=== PATIENT | female | born 1930 | race Caucasian/White ===

== ENCOUNTER 2017-08-01 12:24 | Inpatient (IN) | payer MEDICARE, OTHER ==
[~2017-08-01] VITALS: Ht 177.8 cm; Wt 66.9 kg
[~2017-08-01 12:24] MED LIST: ACETAMINOPHEN1 EAC2 PO; AMLODIPINE BESY10 MG PO; ASPIRIN CHEW81 MG PO; FERROUS SULFAT325 MG PO; LEVAQUIN500 MG PO; LEVOTHYROXINE88 MCG PO; LIPITOR20 MG PO; LISINOPRIL10 MG PO; LOVENOX40 MG/0.4 SC; METOCLOPRAMIDE10 MG PO; METOPROLOL TART50 MG PO; Magnesium/Alum/Simethicone PO; NITROFURANTOIN100 M1 PO; NORVASC10 MG PO; PLAVIX75 MG PO; PROTONIX40 MG/ML PO; TYLENOL EXTRA500 MG PO; TYLENOL325 MG PO; ULTRAM 50MG50 MG PO; VENELEX OINTMEN60 GM TP; VENLAFAXINE HCL75 M1 PO; XARELTO10 MG PO; XOPENEX0.63 MG/3 INH
[2017-08-01] MEDS ORDERED: ACETAMINOPHEN 325 MG TAB PO STA (13:43)
[2017-08-01] MEDS ORDERED: SODIUM CHLORIDE 0.9% 250ML 250 ML IV ONE (13:45)
[2017-08-01] MEDS ORDERED: FUROSEMIDE INJ 10 MG/ML 2 ML VIAL IV PRN (13:45)
[2017-08-01 13:50] LABS: BASOPHILS # (AUTO) 0.1 (0.0-0.1); BASOPHILS % 0.3 % (0.0-1.0); HEMOGLOBIN 10.9 g/dL (12.0-16.0); LYMPHOCYTES # (AUTO) 2.1 (1.0-3.2); LYMPHOCYTES % 10.8 % (18.0-39.1); MEAN CORPUSCULAR HEMOGLOBIN 28.8 pg (28-32); MEAN CORPUSCULAR HGB CONC 32.1 g/dL (31-35); MEAN CORPUSCULAR VOLUME 89.7 fL (81-99); MONOCYTES # (AUTO) 0.8 (0.2-0.8); MONOCYTES % 4.2 % (4.4-11.3); NEUTROPHILS # (AUTO) 16.5 (2.1-6.9); NEUTROPHILS % 84.4 % (38.7-80.0); PLATELET COUNT 245 x10e3/uL (140-360); RED BLOOD COUNT 3.79 x10e6/uL (3.6-5.1)
--- NOTE | 2017-08-01 14:00 | Diagnostic Imaging Report ---
PROCEDURE: A single AP view of the chest. COMPARISON: Patients [facility], DX, CHEST SINGLE (PORTABLE), 11/19/2016, 13:03. INDICATIONS: COUGH, CONGESTION FINDINGS: Lines/tubes: None. Lungs: The lungs are well-inflated. Patchy opacity in the left retrocardiac, likely reflects atelectasis. The rest of the lungs is grossly clear. Pleura: There is no pleural effusion or pneumothorax. Heart and mediastinum: Cardiac silhouette is unremarkable. Pulmonary vasculature is normal. Tortuous aorta with atherosclerotic calcification. Bones: No acute bony abnormality. IMPRESSION: 1. left retrocardiac atelectasis. No consolidation or effusion. Armond Fisher M.D. Dictated by: Armond Fisher M.D. on 08/01/2017 at 14:08 Electronically approved by: Armond Fisher M.D. on 08/01/2017 at 14:08
[2017-08-01 14:01] LABS: INR 1.02; PROTHROMBIN TIME 13.9 seconds (11.9-14.5)
[2017-08-01 14:02] LABS: PARTIAL THROMBOPLASTIN TIME 37.1 seconds (23.8-35.5)
[2017-08-01 14:08] LABS: ALBUMIN 2.5 g/dL (3.5-5.0); ALBUMIN/GLOBULIN RATIO 0.5 (0.8-2.0); CALCIUM 8.3 mg/dL (8.4-10.2); CREATININE, SERUM 2.18 mg/dL (0.57-1.11)
[2017-08-01 14:22] LABS: CREATINE KINASE MB 2.1 ng/mL (0.00-5.00); TROPONIN I 0.03 ng/mL (0-0.300)
[2017-08-01] MEDS ORDERED: ALBUTEROL/IPRATROPIUM 3 ML NEB NEB ONE (14:45)
[2017-08-01] MEDS ORDERED: CEFTRIAXONE SOD 1 GM VIAL IV ONE (14:45)
[2017-08-01] MEDS ORDERED: AZITHROMYCIN 500MG/NS 250 ML 250 ML IV ONE ×2 (14:45→19:00)
[2017-08-01] MEDS: SODIUM CHLORIDE 0.9% 1000ML 1,000 ML IV SCH ×3 (15:30→18:45)
[2017-08-01 16:00] LABS: BILIRUBIN,URINE NEGATIVE (NEGATIVE); CLARITY,URINE HAZY (CLEAR); COLOR,URINE STRAW (YELLOW); KETONES,URINE NEGATIVE (NEGATIVE); LEUKOCYTE ESTERASE ,URINE 2+ (NEGATIVE); NITRITE,URINE NEGATIVE (NEGATIVE); URINE UROBILINOGEN 0.2 mg/dL (0.2 - 1)
[2017-08-01 16:01] LABS: PROTEIN,URINE DIPSTICK 1+ (NEGATIVE)
[2017-08-01 16:07] LABS: MAGNESIUM 1.7 MG/DL (1.3-2.1); PHOSPHORUS 4.3 MG/DL (2.3-4.7)
[2017-08-01 16:15] LABS: RBC,URINE >50 /HPF (0-5)
[2017-08-01] MEDS ORDERED: ONDANSETRON HCL INJ 2 MG/ML VIAL IV PRN (16:15)
[2017-08-01 16:16] LABS: BACTERIA,URINE FEW /HPF; EPITHELIAL CELLS,URINE RARE /LPF
[2017-08-01 16:37] LABS: THYROID STIMULATING HORMONE 0.545 uIU/mL (0.350-4.940)
[2017-08-01] MEDS ORDERED: ACETAMINOPHEN 1000 MG/100 ML IV STA (16:40)
[2017-08-01 18:30] VITALS: BP 93/52
[2017-08-01 19:30] VITALS: BP 115/60
[2017-08-01] MEDS: PIPERACILLIN/TAZO 2.25 GM 50 ML IV SCH (19:30)
[2017-08-01 19:37] LABS: CREATININE,URINE RANDOM 87.86 mg/dL (47-110)
[2017-08-01 19:38] VITALS: BP 93/52
--- NOTE | 2017-08-01 20:25 | Consultation ---
DATE OF CONSULTATION: August 01, 2017 NEPHROLOGY CONSULTATION REASON FOR CONSULTATION: Acute kidney injury. REASON FOR ADMISSION: Cough and fever. HISTORY OF PRESENTING ILLNESS: Ms. 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 She states she has been trying to eat and drink properly, denies any nausea, vomiting, diarrhea. However, she had a soft stool the moment she came into the hospital and then she also was complaining of some generalized pain in her abdomen. At this time, she is having a fever of 101, and on admission she was noted to have an acute kidney injury and her creatinine was noted to be elevated at 2.1 with a BUN of 65. From prior chart review in 2014 to 2015, her creatinine has been between 1.1 to 1.4; so, likely this is [id number] kidney injury. Patient has a Alicia chronically in the alf, which was replaced when she came to the emergency room. At this time, she has very little urine in the urine bag. She has been started on normal saline at 125 to 150 mL per hour. She has been given azithromycin and ceftriaxone and now is on Zosyn as well. She had a chest x-ray done which shows a retrocardiac atelectasis but no pneumonia. Her UA is dirty. However, she has a Alicia. Her UA is positive for 1+ protein, 4+ blood with 2+ leukocyte esterase, more than 50 RBCs and 6-10 WBCs, few bacteria. White count of 19.5, hemoglobin of 10.9 and platelet count of 245. Sodium of 136, potassium 4, chloride 109, bicarb 15, anion gap 16, BUN 65, creatinine 2.18, lactic acid 23.6, calcium 8.3. AST 42, albumin 2.5. TSH 0.5. CK of 127. Phosphorus 4.3 and magnesium 1.7. We have been consulted to assist with management of her acute kidney injury. Patient denies any prior history of JOVANA. However, she is a very poor historian. Most of the history was from chart review. PAST MEDICAL HISTORY 1. Hypertension. 2. CAD status post PCI. 3. 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 4. CVA with left-sided weakness, bilateral footdrop. PAST SURGICAL HISTORY 1. PCI. 2. Hip ORIF. 3. Hysterectomy. SOCIAL HISTORY: Nonsmoker, nonalcoholic, no drug abuse. Lives in alf. FAMILY HISTORY: Not pertinent to chief complaint. ALLERGIES: NO KNOWN ALLERGIES. MEDICATIONS: Reviewed in electronic medical record. REVIEW OF SYSTEMS: Positive for abdominal pain, cough, fever, chills, shortness of breath. Otherwise negative. PHYSICAL EXAMINATION VITAL SIGNS: Temperature 101.2, T-max 102.7, pulse rate 93 per minute, respiratory rate 16 per minute, blood pressure 93/52, pulse ox 96%. GENERAL: Resting in bed, comfortable with nasal cannula on. HEENT: Dry mucous membranes. Normocephalic, atraumatic. RESPIRATORY: Clear breath sounds. Has some coarseness in her left mid lobe but otherwise within normal. CARDIOVASCULAR: Tachycardic. GASTROINTESTINAL: Abdomen diffusely tender, soft. GENITOURINARY: Alicia present with minimal urine in the bag. MUSCULOSKELETAL: Has very dry scaly skin. No edema. Bilateral footdrop. NEUROLOGICAL: Has weakness in her left lower extremity. Oriented x3. LABORATORY STUDIES: WBC count 19.5, hemoglobin 10.9, platelet count 245. INR 1. Chemistries with sodium 136, potassium 4, chloride 109, bicarb 15, anion gap 16, BUN 65, creatinine 2.18, lactic 23.6, calcium 8.3. AST 42, albumin 2.5. TSH 0.5. CK 127, troponin 0.03. Phosphorus 4.3, magnesium 1.7. Urine with pH of 5, protein 1+, blood 4+, leukocyte esterase 2+, more than 50 RBCs, 6-10 WBCs. Blood cultures and urine cultures pending. Chest x-ray with possible left retrocardiac atelectasis but no consolidation. IMPRESSION AND PLAN 1. Acute kidney injury, likely prerenal from volume depletion. Agree with fluids at this time, and we will send urine lytes as well. 2. Sepsis. Likely source appears to be urinary tract infection versus has some tenderness in GI tract. So, I will start Zosyn. Discussed with Dr. Mclean. Will start Zosyn at 2.25 q.8 per renal dosing. Is currently also on azithromycin given her fever, cough. 3. Leukocytosis, likely secondary to volume depletion and sepsis. Continue with fluids. 4. Anion gap metabolic acidosis, likely secondary to volume depletion. Continue with fluids. May have to switch to half NS in the a.m. For now, continue with same. 5. Lactic acidosis, likely secondary to sepsis. Antibiotics and fluids. 6. Cerebrovascular accident. Likely will need PT/OT in the future. Finally, thank you very much, Dr. Mclean, for this consult. I will be very happy to follow this patient with you. Job#: [id number] EV
[2017-08-01 20:48] VITALS: BP 115/60
[2017-08-01] MEDS: ATORVASTATIN 20 MG TAB PO SCH (21:00)
--- NOTE | 2017-08-01 21:12 | History and Physical ---
HISTORY OF PRESENT ILLNESS: Patient is unable to give me much of the history because of history of stroke and dementia. Source of history is the [facility] chart. Patient was transferred from the [facility] with dehydration and fever. She lives at [facility]. She has a history of dementia and according to the notes has history of coronary artery disease, stroke, left-sided hemiparesis, history of left femur open reduction and internal fixation. She is a . She used to live at home with her daughter and her . She has no smoking history. In the emergency room, patient was given IV Rocephin and azithromycin and IV hydration and was admitted for further care. PAST MEDICAL HISTORY: Patient has a history of hypertension, coronary artery disease, history of CVA resulting in left hemiparesis with residual weakness. She has history of a femur fracture. MEDICATION LIST FROM THE LONG TERM: She is on Tylenol, aspirin, DuoNebs, levothyroxine, Lipitor, lisinopril, metoprolol, Norvasc, Plavix and Tessalon Perles. ALLERGIES: SHE HAS NO KNOWN DRUG ALLERGIES PER THE LONG TERM CHART. SOCIAL HISTORY: She was living with her daughter and . She has no history of smoking. PHYSICAL EXAMINATION VITAL SIGNS: Temperature 101.2, pulse of 93, blood pressure 93/52, T-max of 102.7. SKIN: Warm and dry. GENERAL APPEARANCE: She is somnolent but arousable, does not follow much commands. HEENT: Head atraumatic, normocephalic. NECK: Supple. No JVD. CHEST: Crackles bilaterally. HEART: S1/S2 audible. ABDOMEN: Soft, nontender, nondistended. EXTREMITIES: Bilateral pedal edema. NEUROLOGICALLY: She is minimally responsive. LABS: White count of 19,000, hemoglobin 10.9, platelets 245. Chemistry: Sodium 136, potassium 4.0, chloride 109, BUN 65, creatinine 2.18, was 1.1 in November of 2016 when she was discharged from here. INR is 1.02. Urinalysis is showing more than 6-10 WBCs, more than 50 RBCs. Blood cultures and urine cultures are pending. Chest x-ray is unchanged from previous, and I do not see any infiltrate. ASSESSMENT 1. Ms. Duong is an 87-year-old female [facility] resident who came in because of fever. UA is suggestive of urinary tract infection, and patient is in acute renal failure. She was tachycardic and had a temperature of 101.2 with blood pressure of 93/52, likely had septic shock with high lactic acid due to UTI. 2. Urinary tract infection. 3. History of hypertension. 4. History of stroke. 5. History of coronary artery disease. 6. Hypothyroidism. 7. Acute kidney injury. PLAN 1. I will start the patient on IV Zosyn and azithromycin, discontinue the Rocephin. 2. Will follow the blood cultures and urine cultures. 3. Resume the home medication. 4. Nephrology consult for acute kidney injury. Start the patient on IV hydration. 5. Previous urine culture grew Morganella morganii which was sensitive to Zosyn. Job#: [id number] EV
--- NOTE | 2017-08-01 21:54 | Consultation ---
DATE OF CONSULTATION: DICTATION DISCONTINUED (00:08) Job#: [id number] CQ
[2017-08-01] MEDS ORDERED: PIPERACILLIN/TAZO 2.25 GM 50 ML IV SCH (22:00)
[2017-08-02] VITALS (8 sets, daily range): BP systolic 88–126; BP diastolic 49–61
[2017-08-02] MEDS: PIPERACILLIN/TAZO 2.25 GM 50 ML IV SCH ×3 (03:30→21:26)
[2017-08-02] MEDS: ACETAMINOPHEN 325 MG TAB PO PRN (04:40)
--- NOTE | 2017-08-02 05:42 | Diagnostic Imaging Report ---
EXAM: CHEST SINGLE (PORTABLE), AP 1 view DATE: 08/02/2017 7:00 AM Time stamp on exam: 0512 hours INDICATION: Bronchitis COMPARISON: AP view of the chest were 2017 FINDINGS: LINES/TUBES: None LUNGS: Stable bibasilar atelectasis PLEURA: No effusions or pneumothorax. HEART AND MEDIASTINUM: Stable appearance BONES AND SOFT TISSUES: No acute findings. IMPRESSION: Stable bibasilar atelectasis, left greater than right. Signed by: Dr. Shannan Peters M.D. on 08/02/2017 5:38 AM
[2017-08-02] MEDS: LEVOTHYROXINE SODIUM 75 MCG TAB PO SCH (05:51)
[2017-08-02] MEDS: SODIUM CHLORIDE 0.9% 1000ML 1,000 ML IV SCH (05:51)
[2017-08-02 08:27] LABS: BASOPHILS % 0.1 % (0.0-1.0); EOSINOPHILS # (AUTO) 0.1 (0.0-0.4); EOSINOPHILS % 0.4 % (0.0-6.0); HEMATOCRIT 30.1 % (34.2-44.1); HEMOGLOBIN 9.7 g/dL (12.0-16.0); LYMPHOCYTES # (AUTO) 1.7 (1.0-3.2); LYMPHOCYTES % 12.4 % (18.0-39.1); MEAN CORPUSCULAR HEMOGLOBIN 28.6 pg (28-32); MEAN CORPUSCULAR HGB CONC 32.2 g/dL (31-35); MEAN CORPUSCULAR VOLUME 88.8 fL (81-99); MONOCYTES # (AUTO) 0.6 (0.2-0.8); MONOCYTES % 4.5 % (4.4-11.3); NEUTROPHILS % 81.8 % (38.7-80.0); PLATELET COUNT 202 x10e3/uL (140-360); RED BLOOD COUNT 3.39 x10e6/uL (3.6-5.1); RED CELL DISTRIBUTION WIDTH 15.1 % (11.7-14.4)
[2017-08-02] MEDS: CLOPIDOGREL BISULFATE 75 MG TAB PO SCH (08:34)
[2017-08-02] MEDS: ASPIRIN 81 MG CHEW TAB PO SCH (08:34)
[2017-08-02 09:05] LABS: ALANINE AMINOTRANSFERASE 14 IU/L (0-55); ALBUMIN 1.9 g/dL (3.5-5.0); ALBUMIN/GLOBULIN RATIO 0.5 (0.8-2.0); ALKALINE PHOSPHATASE 81 IU/L (40-150); ANION GAP 12.5 mmol/L (8-16); BLOOD UREA NITROGEN 57 mg/dL (7-26); BUN/CREATININE RATIO 36 (6-25); CALCIUM 7.9 mg/dL (8.4-10.2); CARBON DIOXIDE 13 mmol/L (22-29); CHLORIDE 118 mmol/L (98-107); CREATINE KINASE 116 IU/L (29-168); CREATININE, SERUM 1.58 mg/dL (0.57-1.11); EST GLOMERULAR FILTRATION RATE 31 ML/MIN (60-); GLUCOSE 80 mg/dL (74-118); MAGNESIUM 1.5 MG/DL (1.3-2.1); PHOSPHORUS 3.7 MG/DL (2.3-4.7); POTASSIUM 3.5 mmol/L (3.5-5.1); SODIUM 140 mmol/L (136-145)
[2017-08-02] MEDS ORDERED: LEVOFLOXACIN 500MG/D5W 100ML 100 ML IV ONE (10:00)
[2017-08-02] MEDS ORDERED: VANCOMYCIN 1GM/NS 250 ML 250 ML IV ONE (11:00)
[2017-08-02] MEDS: SODIUM BICARBONATE 8.4% 75 ML in SODIUM CHLORIDE 0.45% 1,000 ML IV SCH (11:29)
[2017-08-02] MEDS ORDERED: PIPER-TAZ 3.375 GM 50 ML IV SCH (14:00)
[2017-08-02] MEDS ORDERED: VANCOMYCIN 1GM/NS 250 ML 250 ML IV SCH (14:00)
--- NOTE | 2017-08-02 14:06 | Consultation ---
DATE OF CONSULTATION: August 02, 2017 INFECTIOUS DISEASE CONSULTATION I would like to thank Dr. Mclean for this interesting consult. HISTORY OF PRESENTING ILLNESS: This is a very pleasant 87-year-old female with past medical history of stroke and dementia, who is a [place] [facility] resident. Patient also has history of hypertension, coronary artery disease, left hemiparesis and residual weakness, and history of femur fracture. The patient was transferred from [facility] with dehydration and ongoing fevers. Patient is unable to provide a lot of history, but she thinks that she is feeling better. She is complaining of pain all over the body. Other than that, she has been admitted at [facility] and has been diagnosed with a urinary tract infection and sepsis and our service has been asked to evaluate and give further recommendations. PAST MEDICAL HISTORY: Hypertension, coronary artery disease, CVA, and femur fracture. MEDICATIONS: Reviewed. ALLERGIES: NO KNOWN DRUG ALLERGIES. FAMILY HISTORY: Noncontributory. SOCIAL HISTORY: Patient lives in a [place] [facility] [place]. REVIEW OF SYSTEMS: Unable to obtain as the patient is confused. PHYSICAL EXAMINATION VITAL SIGNS: Temperature is 101, respiratory rate is 18, heart rate is 90, blood pressure is 100/60. SKIN: Warm and dry. HEENT: Atraumatic, normocephalic. CHEST: Clear to auscultation bilaterally. HEART: S1, S2 normal. ABDOMEN: Soft and nontender. EXTREMITIES: Has chronic vascular changes. LABORATORY DATA: WBC count of 13, hemoglobin is 10, and platelet count 245. Sodium 136, potassium is 4.0, and creatinine is 2.18. Urinalysis shows 6-10 wbc's. ASSESSMENT AND PLAN: This is a female with past medical history of coronary artery disease, hypertension, CVA, left hemiparesis, residual weakness, and femur fracture, a [place] [facility] resident, stroke and dementia, presents with fever due to sepsis secondary to urinary tract infection and bacteremia. Blood cultures show gram-positive cocci and urine culture shows gram-negative delfino. I will continue the patient on IV Zosyn 2.25 q.8 hours and she has been given a dose of IV vancomycin and will check the levels in the morning and will re-dose it accordingly. We will also check echocardiogram and also check renal ultrasound for the concerns of pyelonephritis. I would like to thank Dr. Mclean for this interesting consult. Thank you for letting me participate in the care of your patient. Job#: [id number] REED
[2017-08-02] MEDS ORDERED: SODIUM CHLORIDE 0.9% 1000ML 1,000 ML IV SCH (14:30)
[2017-08-02] MEDS ORDERED: CEFTRIAXONE SOD 1 GM VIAL IV SCH (14:45)
[2017-08-02] MEDS ORDERED: ENOXAPARIN SOD INJ 40 MG/0.4 ML SYR SC SCH ×2 (17:00)
[2017-08-02 17:22] LABS: ANION GAP 12.5 mmol/L (8-16); CREATININE, SERUM 1.43 mg/dL (0.57-1.11); POTASSIUM 3.5 mmol/L (3.5-5.1)
[2017-08-02] MEDS ORDERED: AZITHROMYCIN 500MG/NS 250 ML 250 ML IV SCH (20:00)
[2017-08-02] MEDS: ATORVASTATIN 20 MG TAB PO SCH (21:26)
[2017-08-03] VITALS (8 sets, daily range): BP systolic 113–143; BP diastolic 59–68
[2017-08-03] MEDS ORDERED: SODIUM BICARBONATE 8.4% SYRING 100 ML ONE (01:47)
[2017-08-03] MEDS ORDERED: SODIUM CHLORIDE 0.45% 1,000 ML ONE (01:48)
[2017-08-03] MEDS: SODIUM BICARBONATE 8.4% 75 ML in SODIUM CHLORIDE 0.45% 1,000 ML IV SCH ×3 (02:07→11:52)
[2017-08-03] MEDS: LEVOTHYROXINE SODIUM 75 MCG TAB PO SCH (05:35)
[2017-08-03] MEDS: PIPERACILLIN/TAZO 2.25 GM 50 ML IV SCH (05:35)
[2017-08-03 08:35] LABS: BASOPHILS % 0.1 % (0.0-1.0); EOSINOPHILS # (AUTO) 0.1 (0.0-0.4); EOSINOPHILS % 0.9 % (0.0-6.0); HEMATOCRIT 28.3 % (34.2-44.1); HEMOGLOBIN 9.4 g/dL (12.0-16.0); LYMPHOCYTES # (AUTO) 1.6 (1.0-3.2); LYMPHOCYTES % 16.3 % (18.0-39.1); MEAN CORPUSCULAR HEMOGLOBIN 28.7 pg (28-32); MEAN CORPUSCULAR HGB CONC 33.2 g/dL (31-35); MEAN CORPUSCULAR VOLUME 86.3 fL (81-99); MONOCYTES # (AUTO) 0.8 (0.2-0.8); MONOCYTES % 7.9 % (4.4-11.3); NEUTROPHILS # (AUTO) 7.1 (2.1-6.9); NEUTROPHILS % 74.2 % (38.7-80.0); PLATELET COUNT 230 x10e3/uL (140-360); RED BLOOD COUNT 3.28 x10e6/uL (3.6-5.1)
[2017-08-03] MEDS: CLOPIDOGREL BISULFATE 75 MG TAB PO SCH (08:46)
[2017-08-03] MEDS: ASPIRIN 81 MG CHEW TAB PO SCH (08:46)
[2017-08-03] MEDS ORDERED: VANCOMYCIN 1GM/NS 250 ML 250 ML IV SCH (11:00)
[2017-08-03 11:15] LABS: ANION GAP 13.3 mmol/L (8-16); CALCIUM 7.8 mg/dL (8.4-10.2); CREATININE, SERUM 1.1 mg/dL (0.57-1.11); MAGNESIUM 1.2 MG/DL (1.3-2.1); PHOSPHORUS 2.4 MG/DL (2.3-4.7); POTASSIUM 3.3 mmol/L (3.5-5.1); VANCOMYCIN,RANDOM 12.1 ug/mL
--- NOTE | 2017-08-03 11:42 | Diagnostic Imaging Report ---
EXAM: RENAL ULTRASOUND Date: 08/03/2017 7:00 AM Indication: Comparison: None Technique: Sonographic evaluation of the kidneys. Color doppler was utilized to supplement evaluation. FINDINGS: KIDNEYS: Right: Measures 6.9 cm in length. No hydronephrosis or solid mass lesion identified. Renal cortex measures 0.6 cm. Simple appearing cyst superior right kidney 1.2 cm. Left: Measures 8.2 cm in length. No hydronephrosis or solid mass lesion identified. Renal cortex measures 0.6 cm. URINARY BLADDER: Unremarkable. OTHER: None. IMPRESSION: No hydronephrosis. Diminutive kidneys with thinned renal cortices, nonspecific, but often seen in the setting of chronic medical renal disease. Signed by: Dr. Judah Phillips MD on 08/03/2017 11:38 AM
[2017-08-03] MEDS: MAGNESIUM SULFATE 2GM/50ML 50 ML IV SCH ×2 (12:23→14:42)
[2017-08-03] MEDS ORDERED: POTASSIUM CHLORIDE 10MEQ/100ML 200 ML INJ ONE ×2 (13:00→17:30)
[2017-08-03] MEDS: MEROPENEM 500MG 500 MG in WATER STERILE 10ML VIAL 10 ML IV SCH ×2 (13:46→21:04)
[2017-08-03] MEDS: ENOXAPARIN 30 MG/0.3 ML SYR SC SCH (16:53)
[2017-08-03] MEDS ORDERED: POTASSIUM CHLORIDE 10MEQ/100ML 100 ML INJ ONE ×2 (17:30→21:30)
[2017-08-03] MEDS ORDERED: MEROPENEM 500 MG VIAL ONE (20:52)
[2017-08-03] MEDS: ATORVASTATIN 20 MG TAB PO SCH (21:03)
[2017-08-04] VITALS (7 sets, daily range): BP systolic 122–147; BP diastolic 67–77
[2017-08-04] MEDS: MEROPENEM 500MG 500 MG in WATER STERILE 10ML VIAL 10 ML IV SCH ×2 (05:12→14:00)
[2017-08-04] MEDS: LEVOTHYROXINE SODIUM 75 MCG TAB PO SCH (05:13)
[2017-08-04] MEDS: SODIUM BICARBONATE 8.4% 75 ML in SODIUM CHLORIDE 0.45% 1,000 ML IV SCH ×3 (05:16→14:51)
[2017-08-04 07:26] LABS: BASOPHILS % 0.3 % (0.0-1.0); EOSINOPHILS # (AUTO) 0.2 (0.0-0.4); EOSINOPHILS % 2.2 % (0.0-6.0); HEMATOCRIT 27.7 % (34.2-44.1); HEMOGLOBIN 9.3 g/dL (12.0-16.0); LYMPHOCYTES # (AUTO) 1.6 (1.0-3.2); LYMPHOCYTES % 20.8 % (18.0-39.1); MEAN CORPUSCULAR HEMOGLOBIN 28.5 pg (28-32); MEAN CORPUSCULAR HGB CONC 33.6 g/dL (31-35); MONOCYTES # (AUTO) 0.6 (0.2-0.8); MONOCYTES % 7.3 % (4.4-11.3); NEUTROPHILS # (AUTO) 5.4 (2.1-6.9); NEUTROPHILS % 68.8 % (38.7-80.0); PLATELET COUNT 256 x10e3/uL (140-360); RED BLOOD COUNT 3.26 x10e6/uL (3.6-5.1); RED CELL DISTRIBUTION WIDTH 14.9 % (11.7-14.4)
[2017-08-04 07:45] LABS: ANION GAP 10.6 mmol/L (8-16); BLOOD UREA NITROGEN 27 mg/dL (7-26); BUN/CREATININE RATIO 35 (6-25); CALCIUM 7.6 mg/dL (8.4-10.2); CARBON DIOXIDE 20 mmol/L (22-29); CHLORIDE 112 mmol/L (98-107); CREATININE, SERUM 0.77 mg/dL (0.57-1.11); EST GLOMERULAR FILTRATION RATE > 60 ML/MIN (60-); GLUCOSE 86 mg/dL (74-118); MAGNESIUM 2.2 MG/DL (1.3-2.1); PHOSPHORUS 1.7 MG/DL (2.3-4.7); POTASSIUM 3.6 mmol/L (3.5-5.1); SODIUM 139 mmol/L (136-145)
[2017-08-04] MEDS: ASPIRIN 81 MG CHEW TAB PO SCH (09:00)
[2017-08-04] MEDS: CLOPIDOGREL BISULFATE 75 MG TAB PO SCH (09:00)
[2017-08-04] MEDS: ENOXAPARIN 30 MG/0.3 ML SYR SC SCH (17:00)
[2017-08-04] MEDS ORDERED: ALBUTEROL/IPRATROPIUM 3 ML NEB NEB SCH (19:00)
[2017-08-04] MEDS: ATORVASTATIN 20 MG TAB PO SCH (20:43)
[2017-08-04] MEDS: METOPROLOL TARTRATE 50 MG TAB PO SCH (21:00)
[2017-08-04] MEDS: MEROPENEM 500 MG VIAL IV SCH (22:00)
[2017-08-05] VITALS (9 sets, daily range): BP systolic 99–162; BP diastolic 57–89
[2017-08-05] MEDS: LEVOTHYROXINE SODIUM 75 MCG TAB PO SCH (05:15)
[2017-08-05] MEDS: MEROPENEM 500 MG VIAL IV SCH ×3 (05:15→22:06)
[2017-08-05] MEDS: IPRATROPIUM BROMIDE 0.02% 2.5 ML NEB NEB SCH ×2 (07:00→20:30)
[2017-08-05 07:25] LABS: BASOPHILS % 0.3 % (0.0-1.0); EOSINOPHILS # (AUTO) 0.1 (0.0-0.4); EOSINOPHILS % 1.6 % (0.0-6.0); HEMATOCRIT 26.4 % (34.2-44.1); HEMOGLOBIN 8.7 g/dL (12.0-16.0); LYMPHOCYTES # (AUTO) 1.7 (1.0-3.2); LYMPHOCYTES % 22.7 % (18.0-39.1); MEAN CORPUSCULAR VOLUME 84.9 fL (81-99); MONOCYTES # (AUTO) 0.5 (0.2-0.8); MONOCYTES % 7.2 % (4.4-11.3); NEUTROPHILS # (AUTO) 5.1 (2.1-6.9); NEUTROPHILS % 67.7 % (38.7-80.0); PLATELET COUNT 279 x10e3/uL (140-360); RED BLOOD COUNT 3.11 x10e6/uL (3.6-5.1)
[2017-08-05 07:29] LABS: ANION GAP 9.2 mmol/L (8-16); BLOOD UREA NITROGEN 20 mg/dL (7-26); BUN/CREATININE RATIO 28 (6-25); CALCIUM 7.3 mg/dL (8.4-10.2); CARBON DIOXIDE 25 mmol/L (22-29); CHLORIDE 107 mmol/L (98-107); CREATININE, SERUM 0.72 mg/dL (0.57-1.11); EST GLOMERULAR FILTRATION RATE > 60 ML/MIN (60-); GLUCOSE 88 mg/dL (74-118); MAGNESIUM 1.6 MG/DL (1.3-2.1); PHOSPHORUS 1.9 MG/DL (2.3-4.7); POTASSIUM 3.2 mmol/L (3.5-5.1); SODIUM 138 mmol/L (136-145); VANCOMYCIN,RANDOM 10.8 ug/mL
[2017-08-05] MEDS: CLOPIDOGREL BISULFATE 75 MG TAB PO SCH (08:30)
[2017-08-05] MEDS: ASPIRIN 81 MG CHEW TAB PO SCH (08:30)
[2017-08-05] MEDS ORDERED: IPRATROPIUM BROMIDE 0.02% 2.5 ML NEB NEB SCH (09:00)
[2017-08-05] MEDS ORDERED: METOPROLOL TARTRATE 50 MG TAB PO SCH (09:00)
[2017-08-05] MEDS: METOPROLOL TARTRATE 50 MG TAB PO SCH ×2 (09:00→17:00)
[2017-08-05] MEDS: BALSAM PERU/CASTOR OIL 60 GM OINT...G. TP SCH (09:00)
[2017-08-05] MEDS: POTASSIUM PHOSPHATE 20 MM in SODIUM CHLORIDE 0.9% 250ML 250 ML IV SCH ×2 (12:00→16:00)
[2017-08-05] MEDS: DAPTOMYCIN 300 MG in SODIUM CHLORIDE 0.9% 100 ML IV SCH (15:30)
[2017-08-05] MEDS: ENOXAPARIN 30 MG/0.3 ML SYR SC SCH (17:00)
[2017-08-05] MEDS: ATORVASTATIN 20 MG TAB PO SCH (20:49)
[2017-08-05] MEDS ORDERED: POTASSIUM PHOSPHATE 20 MM in SODIUM CHLORIDE 0.9% 250ML 250 ML IV SCH (22:30)
[2017-08-05] MEDS ORDERED: SODIUM CHLORIDE 0.9% 250ML 250 ML ONE (23:46)
[2017-08-06] VITALS (10 sets, daily range): BP systolic 107–144; BP diastolic 57–96
[2017-08-06] MEDS: MEROPENEM 500 MG VIAL IV SCH ×3 (05:58→21:22)
[2017-08-06] MEDS: LEVOTHYROXINE SODIUM 75 MCG TAB PO SCH (05:58)
[2017-08-06] MEDS: IPRATROPIUM BROMIDE 0.02% 2.5 ML NEB NEB SCH ×2 (08:00→20:21)
[2017-08-06 08:06] LABS: BASOPHILS % 0.2 % (0.0-1.0); EOSINOPHILS # (AUTO) 0.1 (0.0-0.4); EOSINOPHILS % 1.4 % (0.0-6.0); HEMOGLOBIN 9.9 g/dL (12.0-16.0); LYMPHOCYTES # (AUTO) 2.3 (1.0-3.2); LYMPHOCYTES % 24.2 % (18.0-39.1); MEAN CORPUSCULAR HEMOGLOBIN 28.4 pg (28-32); MONOCYTES # (AUTO) 0.6 (0.2-0.8); MONOCYTES % 6.5 % (4.4-11.3); NEUTROPHILS # (AUTO) 6.4 (2.1-6.9); NEUTROPHILS % 67.3 % (38.7-80.0); PLATELET COUNT 305 x10e3/uL (140-360); RED BLOOD COUNT 3.49 x10e6/uL (3.6-5.1)
[2017-08-06 08:31] LABS: BLOOD UREA NITROGEN 17 mg/dL (7-26); BUN/CREATININE RATIO 22 (6-25); CALCIUM 7.5 mg/dL (8.4-10.2); CREATININE, SERUM 0.76 mg/dL (0.57-1.11); EST GLOMERULAR FILTRATION RATE > 60 ML/MIN (60-); GLUCOSE 84 mg/dL (74-118); MAGNESIUM 1.7 MG/DL (1.3-2.1); PHOSPHORUS 3.4 MG/DL (2.3-4.7); VANCOMYCIN,RANDOM 7.4 ug/mL
[2017-08-06 08:47] LABS: INR 1.02; PROTHROMBIN TIME 13.9 seconds (11.9-14.5)
[2017-08-06 08:48] LABS: PARTIAL THROMBOPLASTIN TIME 36.2 seconds (23.8-35.5)
[2017-08-06 09:02] LABS: ANION GAP 9.7 mmol/L (8-16); CARBON DIOXIDE 24 mmol/L (22-29); CHLORIDE 103 mmol/L (98-107); POTASSIUM 4.7 mmol/L (3.5-5.1); SODIUM 132 mmol/L (136-145)
[2017-08-06] MEDS: CLOPIDOGREL BISULFATE 75 MG TAB PO SCH (09:16)
[2017-08-06] MEDS: ASPIRIN 81 MG CHEW TAB PO SCH (09:16)
[2017-08-06] MEDS: BALSAM PERU/CASTOR OIL 60 GM OINT...G. TP SCH (09:16)
[2017-08-06] MEDS: METOPROLOL TARTRATE 50 MG TAB PO SCH ×2 (09:16→17:55)
--- NOTE | 2017-08-06 14:02 | Diagnostic Imaging Report ---
EXAMINATION: CHEST XRAY LINE PLACEMENT INDICATION: \S\POST PICC LINE PLACEMENT \S\[id number] \S\[id number] COMPARISON: Chest radiograph 08/02/2017 FINDINGS: AP view TUBES and LINES: Interval placement of right PICC with tip overlying the cavoatrial junction. LUNGS: Bibasilar opacities likely representing atelectasis from adjacent pleural effusions. PLEURA: Small bilateral pleural effusions. No pneumothorax. HEART AND MEDIASTINUM: The cardiomediastinal silhouette is unremarkable. Aortic calcifications. BONES AND SOFT TISSUES: No acute osseous lesion. Soft tissues are unremarkable. UPPER ABDOMEN: No free air under the diaphragm. IMPRESSION: 1. Right PICC tip overlies the cavoatrial junction. 2. Small bilateral pleural effusions with adjacent atelectasis. Signed by: DR. Andre Kyle MD on 08/06/2017 1:59 PM
--- NOTE | 2017-08-06 15:38 | Diagnostic Imaging Report ---
TECHNIQUE: Magnetic resonance imaging of the SACROILIAC JOINTS was performed WITHOUT injected contrast using standard departmental protocols. Per the technologist performing the exam, the patient was unable to hold still for the examination. HISTORY: Osteomyelitis, pain, fever, chills, weight loss COMPARISON: None available. FINDINGS: Motion artifact markedly limits sensitivity and specificity of the exam. Prominent metallic susceptibility artifact centered at the left hip with associated prominent suboptimal fat saturation on the fat-saturated images. Bone and bone marrow: Preservation of the fatty marrow signal on both sides of the sacroiliac joints. Joints: The suboptimal fat saturation limits detection of subtle to moderate effusions, there is no definitive large effusion. IMPRESSION: 1. No evidence of osteomyelitis adjacent to the sacroiliac joints. 2. Limited sensitivity and specificity secondary to severe motion artifact, metallic susceptibility artifacts and inhomogeneous fat saturation. Given these limitations, recommend correlation with pelvic radiographs. A 3 phase nuclear medicine bone scan would provide a more sensitive evaluation for osteomyelitis and insufficiency fracture. Signed by: Dr. Vasyl Watson D.O., M.M.M. on 08/06/2017 3:34 PM
[2017-08-06] MEDS: DAPTOMYCIN 300 MG in SODIUM CHLORIDE 0.9% 100 ML IV SCH (16:00)
[2017-08-06] MEDS: ENOXAPARIN 30 MG/0.3 ML SYR SC SCH (17:47)
[2017-08-06] MEDS: ATORVASTATIN 20 MG TAB PO SCH (20:25)
[2017-08-07] VITALS (7 sets, daily range): BP systolic 109–141; BP diastolic 57–97
[2017-08-07] MEDS: ACETAMINOPHEN 325 MG TAB PO PRN (04:34)
[2017-08-07] MEDS: MEROPENEM 500 MG VIAL IV SCH ×2 (05:55→15:30)
[2017-08-07] MEDS: LEVOTHYROXINE SODIUM 75 MCG TAB PO SCH (05:56)
[2017-08-07] MEDS: IPRATROPIUM BROMIDE 0.02% 2.5 ML NEB NEB SCH ×2 (07:00→19:40)
[2017-08-07 07:06] LABS: BASOPHILS % 0.3 % (0.0-1.0); EOSINOPHILS # (AUTO) 0.2 (0.0-0.4); EOSINOPHILS % 1.9 % (0.0-6.0); HEMATOCRIT 27.9 % (34.2-44.1); HEMOGLOBIN 9.3 g/dL (12.0-16.0); LYMPHOCYTES # (AUTO) 2.1 (1.0-3.2); LYMPHOCYTES % 20.7 % (18.0-39.1); MEAN CORPUSCULAR HEMOGLOBIN 28.4 pg (28-32); MEAN CORPUSCULAR HGB CONC 33.3 g/dL (31-35); MEAN CORPUSCULAR VOLUME 85.3 fL (81-99); MONOCYTES # (AUTO) 0.6 (0.2-0.8); MONOCYTES % 5.5 % (4.4-11.3); NEUTROPHILS # (AUTO) 7.1 (2.1-6.9); NEUTROPHILS % 70.9 % (38.7-80.0); PLATELET COUNT 334 x10e3/uL (140-360); RED BLOOD COUNT 3.27 x10e6/uL (3.6-5.1); RED CELL DISTRIBUTION WIDTH 15.1 % (11.7-14.4)
[2017-08-07 07:38] LABS: ANION GAP 10.5 mmol/L (8-16); BLOOD UREA NITROGEN 16 mg/dL (7-26); BUN/CREATININE RATIO 23 (6-25); CALCIUM 7.6 mg/dL (8.4-10.2); CARBON DIOXIDE 26 mmol/L (22-29); CHLORIDE 108 mmol/L (98-107); CREATINE KINASE 35 IU/L (29-168); EST GLOMERULAR FILTRATION RATE > 60 ML/MIN (60-); GLUCOSE 107 mg/dL (74-118); MAGNESIUM 1.4 MG/DL (1.3-2.1); PHOSPHORUS 2.5 MG/DL (2.3-4.7); POTASSIUM 4.5 mmol/L (3.5-5.1); SODIUM 140 mmol/L (136-145)
[2017-08-07] MEDS: BALSAM PERU/CASTOR OIL 60 GM OINT...G. TP SCH (09:13)
[2017-08-07] MEDS: METOPROLOL TARTRATE 50 MG TAB PO SCH ×2 (09:13→17:28)
[2017-08-07] MEDS: CLOPIDOGREL BISULFATE 75 MG TAB PO SCH (09:13)
[2017-08-07] MEDS: NYSTATIN 15 GM POWDER UD BTL TOP SCH ×2 (09:13→17:29)
[2017-08-07] MEDS: ASPIRIN 81 MG CHEW TAB PO SCH (09:13)
[2017-08-07] MEDS ORDERED: MAGNESIUM SULFATE 2GM/50ML 50 ML IV ONE (12:30)
[2017-08-07] MEDS ORDERED: SODIUM CHLORIDE 0.9% 250ML 250 ML ONE (13:13)
[2017-08-07] MEDS ORDERED: LOVENOX30 MG/0.3 SC (15:21)
[2017-08-07] MEDS ORDERED: MERREM500 MG IV (15:21)
[2017-08-07] MEDS ORDERED: VENELEX OINTMEN60 GM TP (15:21)
[2017-08-07] MEDS ORDERED: IPRATROPIU0.2 MG/1 M NEB (15:21)
[2017-08-07] MEDS ORDERED: NYAMYC15 GM TOP (15:21)
[2017-08-07] MEDS: DAPTOMYCIN 300 MG in SODIUM CHLORIDE 0.9% 100 ML IV SCH (15:46)
--- NOTE | 2017-08-07 16:08 | Discharge Summary ---
This is a patient of Dr. Mclean and Dr. Maxwell and Dr. Coates. This is a charming but unfortunate 87-year-old woman with a history of stroke and dementia. Transferred to the longterm with dehydration and fever. She is a resident of [facility]. History of coronary disease, old stroke with left-sided hemiparesis, history of left femur fracture and open reduction and internal fixation. She is . Nonsmoker. She has a history of hypertension and hyperlipidemia. No known allergies. Found to have a urinary tract infection, a sacral wound and renal failure. Urine cultures grew resistant E. coli, which was sensitive to meropenem. Blood cultures grew Staph aureus, which was MRSA, which was a resistant organism. Because of the renal failure, nephrology had held her vancomycin. She was placed on daptomycin. MRI of the spine was equivocal. The bone scan is pending at this time. PICC line was placed for long-term antibiotics. She was transferred to continue wound care. Daptomycin 300 mg every 24 hours, aspirin 81, Lipitor 20, Plavix 75, Lovenox 30, ipratropium twice a day, Levoxyl 75 mcg once a day, meropenem 500 q.8 h., metoprolol 50 mg b.i.d., nystatin for fungal infection in the axilla. She will be followed by Dr. Mclean, Dr. Maxwell, and Dr. Coates in the [facility]. Patient is agreeable to transfer. TAMMY DAVILA MD Job#: [id number]
[2017-08-07] MEDS: ENOXAPARIN 30 MG/0.3 ML SYR SC SCH (17:29)
--- NOTE | 2017-08-07 19:30 | Diagnostic Imaging Report ---
Bone Scan, three-phase Reason for exam: 87 F with dementia, non-ambulatory x 2 years, admitted with urosepsis and JOVANA. Sacral wound recently developed at detention; evaluate for osteomyelitis. Radiopharmaceutical: Tc-99m MDP 25.9 mCi Comparison: MRI SI joints 08/06/2017 Following intravenous administration of the radiopharmaceutical, dynamic flow and immediate blood pool images of the hips and pelvis followed by 4-hour delayed spot images were obtained. Flow and blood pool images show symmetric distribution of tracer activity to the lower back, hips and pelvis without focal abnormality. On the delayed images, the left hip prosthesis is noted and is not associated with any abnormal adjacent tracer accumulation. No abnormal focal accumulation of tracer is seen in the pelvis or hips. Impression: No scan evidence of osteomyelitis in the pelvis or hips. Signed by: Dr. Kayleigh Mccurdy M.D. on 08/07/2017 7:26 PM
== END 2017-08-07 22:37 | DRG 871 ==
LOC: ER 12:24 → ERHOLD 17:15 → MED/SURG3 17:16
PROVIDERS: ADMIT Internal Medicine; ATTEND Internal Medicine
PROC: 02HV33Z Insertion of Infusion Device into Superior Vena Cava, Percutaneous Approach (ICD-10-PCS; principal; 2017-08-06)
DX: A41.02 Sepsis due to Methicillin resistant Staphylococcus aureus (principal); R65.21 Severe sepsis with septic shock; N17.0 Acute kidney failure with tubular necrosis; L89.312 Pressure ulcer of right buttock, stage 2; E87.2 Acidosis; J18.9 Pneumonia, unspecified organism; E87.8 Other disorders of electrolyte and fluid balance, not elsewhere classified; L89.322 Pressure ulcer of left buttock, stage 2; F03.90 Unspecified dementia, unspecified severity, without behavioral disturbance, psychotic disturbance, mood disturbance, and anxiety; B36.8 Other specified superficial mycoses; N17.9 Acute kidney failure, unspecified; N39.0 Urinary tract infection, site not specified; I69.354 Hemiplegia and hemiparesis following cerebral infarction affecting left non-dominant side; N18.3 Chronic kidney disease, stage 3 (moderate); I25.10 Atherosclerotic heart disease of native coronary artery without angina pectoris; E03.9 Hypothyroidism, unspecified; Z95.5 Presence of coronary angioplasty implant and graft; M21.372 Foot drop, left foot; M21.371 Foot drop, right foot; I12.9 Hypertensive chronic kidney disease with stage 1 through stage 4 chronic kidney disease, or unspecified chronic kidney disease; E86.0 Dehydration; E88.09 Other disorders of plasma-protein metabolism, not elsewhere classified; J40 Bronchitis, not specified as acute or chronic; R19.7 Diarrhea, unspecified; B96.20 Unspecified Escherichia coli [E. coli] as the cause of diseases classified elsewhere; Z16.12 Extended spectrum beta lactamase (ESBL) resistance; E87.6 Hypokalemia; E83.42 Hypomagnesemia; D64.9 Anemia, unspecified; A41.51 Sepsis due to Escherichia coli [E. coli]
CPT/HCPCS: 36415; 36569; 71010; 72195; 76770; 78315; 80048; 80053; 80202; 81001; 82550; 82553; 82570; 83605; 83735; 84100; 84300; 84443; 84484; 84550; 85025; 85610; 85651; 85730; 86850; 86900; 86920; 87040; 87071; 87086; 87186; 87205; 87400; 93306; 94640; 96361; 96367; 97139; 99285; A9503; J0456; J0696; J1650; J1956; J2185; J2543; J3370; J3480; J7030; J7050

== ENCOUNTER 2019-04-05 16:37 | Emergency (ER) | payer MEDICARE ==
[~2019-04-05] VITALS: Ht 177.8 cm; Wt 66.7 kg
[~2019-04-05 16:37] MED LIST changes: +IPRATROPIU0.2 MG/1 M NEB; +LOVENOX30 MG/0.3 SC; +MERREM500 MG IV; +NYAMYC15 GM TOP
--- OUTSIDE RECORDS SUMMARY | 2019-04-05 16:41 | XMS REPORT ---
Author [facility] Address Unknown Phone Unavailable Care Team Providers Care Advertising Analyst Name Role Phone BETTE NIELSON Unavailable Unavailable Problems This patient has no known problems. Allergies, Adverse Reactions, Alerts This patient has no known allergies or adverse reactions. Medications This patient has no known medications. Results Test Description Test Time Test Comments Text Results Atomic Results Result Comments BONE SCAN, 3 PHASE [place] [address] Patient Name: ANDREY PICHARDO MR #: [id number] : 1930 Age/Sex: 87/F Req #: [id number] Adm Physician: BETTE NIELSON MD Ordered by: TAMMY DAVILA MD Report #: [id number] Location: MED/SURG3 Room/Bed: 293-1 Procedure: [id number] NM/BONE SCAN, 3 PHASE Exam Date: 08/07/17 Exam Time: 1030 REPORT STATUS: Signed Bone Scan, three-phase Reason for exam: 87 F with dementia, non-ambulatory x 2 years, admitted with urosepsis and JOVANA. Sacral wound recently developed at shelter; evaluate for osteomyelitis. Radiopharmaceutical: Tc-99m MDP 25.9 mCi Comparison: MRI SI joints 08/06/2017 Following intravenous administration of the radiopharmaceutical, dynamic flow and immediate blood pool images of the hips and pelvis followed by 4-hour delayed spot images were obtained. Flow and blood pool images show symmetric distribution of tracer activity to the lower back, hips and pelvis without focal abnormality. On the delayed images, the left hip prosthesis is noted and is not associated with any abnormal adjacent tracer accumulation. No abnormal focal accumulation of tracer is seen in the pelvis or hips. Impression: No scan evidence of osteomyelitis in the pelvis or hips. Signed by: Dr. Gemini Mccurdy M.D. on 08/07/2017 7:26 PM Dictated By: GEMINI MCCURDY MD 25 Transcribed By: EDE on 08/07/171925 COPY TO: TAMMY DAVILA MD CHEST XRAY LINE PLACEMENT [place] [address] Patient Name: ANDREY PICHARDO MR #: [id number] : 1930 Age/Sex: 87/F Req #: [id number] Adm Physician: BETTE NIELSON MD Ordered by: TAMMY DAVILA MD Report #: [id number] Location: [facility] Room/Bed: 293-1 Procedure: [id number] DX/CHEST XRAY LINE PLACEMENT Exam Date: 08/06/17 Exam Time: 1325 REPORT STATUS: Signed EXAMINATION: CHEST XRAY LINE PLACEMENT INDICATION: COMPARISON: Chest radiograph 08/02/2017 FINDINGS: AP view TUBES and LINES: Interval placement of right PICC with tip overlying the cavoatrial junction. LUNGS: Bibasilar opacities likely representing atelectasis from adjacent pleural effusions. PLEURA: Small bilateral pleural effusions. No pneumothorax. HEART AND MEDIASTINUM: The cardiomediastinal silhouette is unremarkable. Aortic calcifications. BONES AND SOFT TISSUES: No acute osseous lesion. Soft tissues are unremarkable. UPPER ABDOMEN: No free air under the diaphragm. IMPRESSION: 1. Right PICC tip overlies the cavoatrial junction. 2. Small bilateral pleural effusions with adjacent atelectasis. Signed by: DR. Andre Watson MD on 08/06/2017 1:59 PM Dictated By: ANDRE WATSON MD 1230 Transcribed By: EDE on 08/06/17 8204 COPY TO: TAMMY DAVILA MD MRI SI JOINTS WO [place] [address] Patient Name: ANDREY PICHARDO MR #: [id number] : 1930 Age/Sex: 87/F Req #: [id number] Adm Physician: BETTE NIELSON MD Ordered by: ZAFAR SOSA MD Report #: [id number] Location: MED/SURG3 Room/Bed: [facility] Procedure: [id number] MRI/MRI SI JOINTS WO Exam Date: Exam Time: REPORT STATUS: Signed TECHNIQUE: Magnetic resonance imaging of the SACROILIAC JOINTS was performed WITHOUT injected contrast using standard departmental protocols. Per the technologist performing the exam, the patient was unable to hold still for the examination. HISTORY: Osteomyelitis, pain, fever, chills, weight loss COMPARISON: None available. FINDINGS: Motion artifact markedly limits sensitivity and specificity of the exam. Prominent metallic susceptibility artifact centered at the left hip with associated prominent suboptimal fat saturation on the fat-saturated images. Bone and bone marrow: Preservation of the fatty marrow signal on both sides of the sacroiliac joints. Joints: The suboptimal fat saturation limits detection of subtle to moderate effusions, there is no definitive large effusion. IMPRESSION: 1. No evidence of osteomyelitis adjacent to the sacroiliac joints. 2. Limited sensitivity and specificity secondary to severe motion artifact, metallic susceptibility artifacts and inhomogeneous fat saturation. Given these limitations, recommend correlation with pelvic radiographs. A 3 phase nuclear medicine bone scan would provide a more sensitive evaluation for osteomyelitis and insufficiency fracture. Signed by: Dr. Vasyl Watson D.O., M.M.M. on 08/06/2017 3:34 PM Dictated By: VASYL WATSON DO 33 Transcribed By: EDE on 08/06/171533 COPY TO: ZAFAR SSOA MD US RENAL RETROPERITONEAL COMP [place] [address] Patient Name: ANDREY PICHARDO MR #: [id number] : 1930 Age/Sex: 87/F Req #: [id number] Adm Physician: BETTE NIELSON MD Ordered by: ZAFAR SOSA MD Report #: [id number] Location: MED/SURG3 Room/Bed: [facility] Procedure: [id number] US/US RENAL RETROPERITONEAL COMP Exam Date: 08/03/17 Exam Time: 1026 REPORT STATUS: Signed EXAM: RENAL ULTRASOUND Date: 08/03/2017 7:00 AM Indication: Comparison: None Technique: Sonographic evaluation of the kidneys. Color doppler was utilized to supplement evaluation. FINDINGS: KIDNEYS: Right: Measures 6.9 cm in length. No hydronephrosis or solid mass lesion identified. Renal cortex measures 0.6 cm. Simple appearing cyst superior right kidney 1.2 cm. Left: Measures 8.2 cm in length. No hydronephrosis or solid mass lesion identified. Renal cortex measures 0.6 cm. URINARY BLADDER: Unremarkable. OTHER: None. IMPRESSION: No hydronephrosis. Diminutive kidneys with thinned renal cortices, nonspecific, but often seen in the setting of chronic medical renal disease. Signed by: Dr. Mervat Phillips MD on 08/03/2017 11:38 AM Dictated By: MERVAT PHILLIPS MD 37 Transcribed By: EDE on 08/03/17 113 COPY TO: ZAFAR SOSA MD CHEST SINGLE (PORTABLE) [place] [address] Patient Name: ANDREY PICHARDO MR #: [id number] : 1930 Age/Sex: 87/F Req #: [id number] Adm Physician: BETTE NIELSON MD Ordered by: REGINA LANIER MD Report #: [id number] Location: MED/SURG3 Room/Bed: [facility] Procedure: [id number] DX/CHEST SINGLE (PORTABLE) Exam Date: 08/02/17 Exam Time: 0420 REPORT STATUS: Signed EXAM: CHEST SINGLE (PORTABLE), AP 1 view DATE: 08/02/2017 7:00 AM Time stamp on exam: 0512 hours INDICATION: Bronchitis COMPARISON: AP view of the chest were 2017 FINDINGS: LINES/TUBES: None LUNGS: Stable bibasilar atelectasis PLEURA: No effusions or pneumothorax. HEART AND MEDIASTINUM: Stable appearance BONES AND SOFT TISSUES: No acute findings. IMPRESSION: Stable bibasilar atelectasis, left greater than right. Signed by: Dr. Ephraim Hunter M.D. on 08/02/2017 5:38 AM Dictated By: EPHRAIM HUNTER MD 7 Transcribed By: EDE on 08/02/17537 COPY TO: REGINA LANIER MD CHEST SINGLE (PORTABLE) [place] [address] Patient Name: ANDREY PICHARDO MR #: [id number] : 1930 Age/Sex: 87/F Req #: [id number] Adm Physician: Ordered by: REGINA LANIER MD Report #: [id number] Location: ER Room/Bed: Procedure: [id number] DX/CHEST SINGLE (PORTABLE) Exam Date: 08/01/17 Exam Time: 1257 REPORT STATUS: Signed PROCEDURE: A single AP view of the chest. COMPARISON: [facility], DX, CHEST SINGLE (PORTABLE), 11/19/2016, 13:03. INDICATIONS: COUGH, CONGESTION FINDINGS: Lines/tubes: None. Lungs: The lungs are well-inflated. Patchy opacity in the left retrocardiac, likely reflects atelectasis. The rest of the lungs is grossly clear. Pleura: There is no pleural effusion or pneumothorax. Heart and mediastinum: Cardiac silhouette is unremarkable. Pulmonary vasculature is normal. Tortuous aorta with atherosclerotic calcification. Bones: No acute bony abnormality. IMPRESSION: 1. left retrocardiac atelectasis. No consolidation or effusion. Armond Fisher M.D. Dictated by: Armond Fisher M.D. on 2017 at 14:08 Electroni lesli approved by: Armond Fisher M.D. on 2017 at 14:08 Dictated By: ARMOND FISHER MD 140 Transcribed By: JUANJOSE on 08/01/171407 COPY TO: REGINA LANIER MD
--- OUTSIDE RECORDS SUMMARY | 2019-04-05 16:41 | XMS REPORT | Clinical Summary ---
Author Author [facility] Address Unknown Phone Unavailable Care Team Providers Care Hitting Coach Name Role Phone Kobi Ferreira MD PCP Allergies No Known Allergies Medications No known medications Active Problems Problem Noted Date Moderate major depression, single episode 01/05/2016 Closed fracture of shaft of left femur 10/18/2015 S/P coronary angiogram 09/07/2015 Coronary artery disease involving [place] coronary artery of [place] heart 07/20/2015 without angina pectoris Acquired hypothyroidism 04/03/2015 CVA, old, hemiparesis 04/03/2015 Essential hypertension 04/03/2015 Social History Date Tobacco Use Types Packs/Day Years Used Never Smoker Smokeless Tobacco: Never Used Sex Assigned at Date Recorded Not on file Industry Job Start Date Occupation Not on file Not on file Not on file Travel End Travel History Travel Start No recent travel history available. Last Filed Vital Signs Not on file Plan of Treatment Not on file Results Not on fileafter 04/04/2018 Insurance Type Payer Benefit Subscriber ID Effective Phone Address Plan / Dates Group Medicare MEDICARE MEDICARE xxxxxxxxxx 1996-P RONAL, PART A AND resent [place] B Medicaid MEDICAID MEDICAID xxxxxxxxx 2017-P resent Advance Directives For more information, please contact: [phone] Patient Machine Molder Explanation Type Date Recorded Advance Directives, Living Will and Medical Power of Technical Intern Advance Directives, 09/11/2017 4:51 PM Living Will and Medical Power of Technical Intern
[2019-04-05] MEDS ORDERED: OXYBUTYNIN CHLOR5 MG PO (17:26)
[2019-04-05] MEDS ORDERED: NYSTATIN100000 UNI PO (17:26)
[2019-04-05 17:31] LABS: BASOPHILS % 0.4 % (0.0-1.0); EOSINOPHILS # (AUTO) 0.2 (0.0-0.4); EOSINOPHILS % 2.2 % (0.0-6.0); HEMATOCRIT 38.2 % (34.2-44.1); HEMOGLOBIN 12.4 g/dL (12.0-16.0); LYMPHOCYTES # (AUTO) 2.4 (1.0-3.2); LYMPHOCYTES % 26.4 % (18.0-39.1); MEAN CORPUSCULAR HEMOGLOBIN 30.1 pg (28-32); MEAN CORPUSCULAR HGB CONC 32.5 g/dL (31-35); MEAN CORPUSCULAR VOLUME 92.7 fL (81-99); MONOCYTES # (AUTO) 0.6 (0.2-0.8); MONOCYTES % 6.5 % (4.4-11.3); NEUTROPHILS # (AUTO) 5.7 (2.1-6.9); NEUTROPHILS % 64.3 % (38.7-80.0); PLATELET COUNT 261 x10e3/uL (140-360); RED BLOOD COUNT 4.12 x10e6/uL (3.6-5.1); RED CELL DISTRIBUTION WIDTH 14.6 % (11.7-14.4)
[2019-04-05 17:36] LABS: BILIRUBIN,URINE NEGATIVE (NEGATIVE); CLARITY,URINE CLOUDY (CLEAR); COLOR,URINE YELLOW (YELLOW); KETONES,URINE NEGATIVE (NEGATIVE); LEUKOCYTE ESTERASE ,URINE LARGE (NEGATIVE); NITRITE,URINE NEGATIVE (NEGATIVE); PROTEIN,URINE DIPSTICK 1+ (NEGATIVE); URINE UROBILINOGEN 0.2 mg/dL (0.2 - 1)
[2019-04-05 17:43] LABS: INR 0.89; PROTHROMBIN TIME 12.5 seconds (11.9-14.5)
[2019-04-05 17:44] LABS: PARTIAL THROMBOPLASTIN TIME 38.5 seconds (23.8-35.5)
[2019-04-05 17:51] LABS: ANION GAP 11.4 mmol/L (8-16); BLOOD UREA NITROGEN 17 mg/dL (7-26); BUN/CREATININE RATIO 22 (6-25); CALCIUM 9.1 mg/dL (8.4-10.2); CARBON DIOXIDE 25 mmol/L (22-29); CHLORIDE 98 mmol/L (98-107); CREATININE, SERUM 0.77 mg/dL (0.57-1.11); EST GLOMERULAR FILTRATION RATE > 60 ML/MIN (60-); GLUCOSE 122 mg/dL (74-118); POTASSIUM 4.4 mmol/L (3.5-5.1); SODIUM 130 mmol/L (136-145)
[2019-04-05 18:17] LABS: BACTERIA,URINE MODERATE /HPF; EPITHELIAL CELLS,URINE FEW /LPF
[2019-04-05] MEDS ORDERED: FLUCONAZOLE100 MG PO (18:26)
[2019-04-05] MEDS ORDERED: MACRODANTIN100 MG PO (18:26)
[2019-04-05] MEDS ORDERED: FLUCONAZOLE 100 MG TAB PO ONE (18:30)
== END 2019-04-05 20:04 | disposition home or self-care (01) ==
LOC: ER 16:37
DX: N30.91 Cystitis, unspecified with hematuria (principal); B37.2 Candidiasis of skin and nail; I10 Essential (primary) hypertension; I25.10 Atherosclerotic heart disease of native coronary artery without angina pectoris; E78.5 Hyperlipidemia, unspecified; Z95.1 Presence of aortocoronary bypass graft
CPT/HCPCS: 36415; 80048; 81001; 85025; 85610; 85730; 87086; 87186; 99284

== ENCOUNTER 2019-08-30 12:16 | Inpatient (IN) | payer MEDICARE ==
[~2019-08-30] VITALS: Ht 177.8 cm; Wt 70.3 kg
[~2019-08-30 12:16] MED LIST changes: +FLUCONAZOLE100 MG PO; +MACRODANTIN100 MG PO; +NYSTATIN100000 UNI PO; +OXYBUTYNIN CHLOR5 MG PO
[2019-08-30 12:40] LABS: BASOPHILS # (AUTO) 0.1 (0.0-0.1); BASOPHILS % 0.4 % (0.0-1.0); EOSINOPHILS % 0.1 % (0.0-6.0); HEMATOCRIT 41.4 % (34.2-44.1); HEMOGLOBIN 13.8 g/dL (12.0-16.0); LYMPHOCYTES # (AUTO) 1.6 (1.0-3.2); LYMPHOCYTES % 12.8 % (18.0-39.1); MEAN CORPUSCULAR HEMOGLOBIN 29.8 pg (28-32); MEAN CORPUSCULAR HGB CONC 33.3 g/dL (31-35); MEAN CORPUSCULAR VOLUME 89.4 fL (81-99); MONOCYTES # (AUTO) 0.6 (0.2-0.8); MONOCYTES % 4.8 % (4.4-11.3); NEUTROPHILS # (AUTO) 9.9 (2.1-6.9); NEUTROPHILS % 81.3 % (38.7-80.0); PLATELET COUNT 267 x10e3/uL (140-360); RED BLOOD COUNT 4.63 x10e6/uL (3.6-5.1); RED CELL DISTRIBUTION WIDTH 15.4 % (11.7-14.4)
[2019-08-30] MEDS ORDERED: ACETAMINOPHEN 325 MG TAB PO ONE (12:45)
[2019-08-30] MEDS ORDERED: ASPIRIN 81 MG CHEW TAB PO ONE (12:45)
[2019-08-30 12:55] LABS: INR 0.99; PROTHROMBIN TIME 13.7 seconds (11.9-14.5)
[2019-08-30 12:56] LABS: PARTIAL THROMBOPLASTIN TIME 40.6 seconds (23.8-35.5)
[2019-08-30 13:03] LABS: ALBUMIN/GLOBULIN RATIO 0.6 (0.8-2.0); ANION GAP 13.9 mmol/L (8-16); CALCIUM 9.5 mg/dL (8.4-10.2); CREATININE, SERUM 1.07 mg/dL (0.57-1.11); POTASSIUM 4.9 mmol/L (3.5-5.1)
[2019-08-30 13:10] LABS: CREATINE KINASE MB 0.8 ng/mL (0-5.0)
[2019-08-30 13:47] LABS: STREPTOCOCCUS GRP A ANTIGEN NEGATIVE (NEGATIVE)
[2019-08-30 13:55] LABS: INFLUENZAE A&B ANTIGEN (RAPID) POSITIVE FLU A (NEGATIVE)
[2019-08-30 14:26] LABS: BILIRUBIN,URINE NEGATIVE (NEGATIVE); CLARITY,URINE SL CLOUDY (CLEAR); COLOR,URINE YELLOW (YELLOW); KETONES,URINE NEGATIVE (NEGATIVE); LEUKOCYTE ESTERASE ,URINE TRACE (NEGATIVE); NITRITE,URINE NEGATIVE (NEGATIVE); PROTEIN,URINE DIPSTICK 2+ (NEGATIVE); URINE UROBILINOGEN 1 mg/dL (0.2 - 1)
[2019-08-30 14:42] LABS: BACTERIA,URINE MANY /HPF
[2019-08-30] MEDS ORDERED: SODIUM CHLORIDE 0.9% 500ML 500 ML IV ONE ×2 (14:45→15:00)
--- NOTE | 2019-08-30 14:45 | NUR ---
RN at bedside, noted low BP. Dr. Noel notified. Patient sleeping. Orders given. BP: 76/46 HR:84
[2019-08-30] MEDS ORDERED: SODIUM CHLORIDE 0.9% 1000ML 1,000 ML IV STA (14:49)
[2019-08-30] MEDS ORDERED: CEFTRIAXONE SOD 1 GM/NS 50 ML 50 ML IV ONE ×2 (15:00)
--- NOTE | 2019-08-30 15:00 | NUR ---
1 liter NS bolus infusing, patient noted to have congestion and mucous. Ronchi noted to all lung pappas. Patient placed on 2l/NC due to Sats 92%. Patient responding to bolus BP: 92/51 HR: 83. Suctioned patient's mouth with yankuer, thick white sputum noted. Patient attempting to cough, pt weak and unable to spit out sputum.
--- NOTE | 2019-08-30 15:31 | Diagnostic Imaging Report ---
Exam: Chest one view Comparison: August 06, 2007 Clinical history: Cough, fever Findings: There is no evidence of pulmonary consolidation, pleural effusion, or pneumothorax. The cardiac size is within normal limits. The regional osseous structures are unremarkable. Impression: 1. No radiographic evidence of acute cardiorespiratory disease. Signed by: Dr. Familia Lilly MD on 08/30/2019 3:29 PM
--- NOTE | 2019-08-30 15:53 | NUR ---
Patient medicated per EMAR. Awaiting further orders/disposition.
[2019-08-30] MEDS: OSELTAMIVIR PHOSPHATE 75 MG CAP PO SCH (15:54)
--- NOTE | 2019-08-30 19:00 | NUR ---
PATIENT RECEIVED FROM ER PER STRETCHER. ALERT AND VERBALLY RESPONSIVE. SKIN WARM AND DRY TO TOUCH, RESPIRATION EVEN AND UNLABORED; O2 IN PLACE VIA N/C. WALTER CATHETER WITH CLEAR YELLOW URINE, TELEMETRY BOX [address]. ASSISTED TO BED BY 3 STAFFS, DIAPER CHANGED. BED IN LOWER POSITION AND LOCKED, CALL LIGHT AT REACH.
--- NOTE | 2019-08-30 19:28 | NUR ---
Received bedside report from day nurse. Patient resting in bed, no s/s of distress or c/o pain at this time. All safety measures in place. Will continue to monitor.
--- NOTE | 2019-08-30 19:47 | NUR ---
Called and informed Dr. Mchugh's team that patient received one-time dose of IV Rocephin in ER. Received orders to put patient on scheduled IV Rocephin Q24H.
[2019-08-30 19:55] VITALS: BP 154/79
[2019-08-30 20:39] VITALS: BP 154/79
[2019-08-30 21:00] VITALS: BP 154/79
--- NOTE | 2019-08-30 21:15 | NUR ---
Patient having productive cough. Called Dr. Mchugh and received orders for Tessalon Perles 100 mg PO Q8H PRN.
[2019-08-30] MEDS: BENZONATATE 100 MG CAP PO PRN (21:32)
[2019-08-31] VITALS (9 sets, daily range): BP systolic 124–164; BP diastolic 57–91
[2019-08-31] MEDS ORDERED: SODIUM CHLORIDE 0.9% 250ML 250 ML ONE (04:10)
--- NOTE | 2019-08-31 05:18 | NUR ---
Alicia catheter care performed.
--- NOTE | 2019-08-31 07:02 | NUR ---
Bedside report given to day nurse. Patient resting in bed, no s/s of distress or c/o pain at this time. All safety measures in place.
[2019-08-31] MEDS: OSELTAMIVIR PHOSPHATE 75 MG CAP PO SCH ×2 (08:36→17:19)
--- NOTE | 2019-08-31 12:01 | NUR ---
patient up in bed, Dr Mchugh had rounds . patient not in any distress
[2019-08-31 12:24] LABS: BASOPHILS % 0.3 % (0.0-1.0); EOSINOPHILS % 0.3 % (0.0-6.0); HEMATOCRIT 38.8 % (34.2-44.1); HEMOGLOBIN 12.4 g/dL (12.0-16.0); LYMPHOCYTES # (AUTO) 1.8 (1.0-3.2); LYMPHOCYTES % 15.1 % (18.0-39.1); MEAN CORPUSCULAR HEMOGLOBIN 29.4 pg (28-32); MEAN CORPUSCULAR VOLUME 91.9 fL (81-99); MONOCYTES # (AUTO) 0.7 (0.2-0.8); MONOCYTES % 6.1 % (4.4-11.3); NEUTROPHILS # (AUTO) 9.4 (2.1-6.9); NEUTROPHILS % 77.6 % (38.7-80.0); PLATELET COUNT 205 x10e3/uL (140-360); RED BLOOD COUNT 4.22 x10e6/uL (3.6-5.1)
[2019-08-31] MEDS: GUAIFENESIN 600 MG TAB PO PRN ×2 (12:39→19:58)
[2019-08-31 12:44] LABS: ANION GAP 15.1 mmol/L (8-16); BLOOD UREA NITROGEN 20 mg/dL (7-26); BUN/CREATININE RATIO 23 (6-25); CALCIUM 8.8 mg/dL (8.4-10.2); CARBON DIOXIDE 21 mmol/L (22-29); CHLORIDE 102 mmol/L (98-107); CREATININE, SERUM 0.87 mg/dL (0.57-1.11); EST GLOMERULAR FILTRATION RATE > 60 ML/MIN (60-); GLUCOSE 102 mg/dL (74-118); POTASSIUM 4.1 mmol/L (3.5-5.1); SODIUM 134 mmol/L (136-145)
[2019-08-31] MEDS ORDERED: CEFTRIAXONE SOD 1 GM/NS 50 ML 50 ML IV SCH (15:00)
[2019-08-31] MEDS: METOPROLOL TARTRATE 25 MG TAB PO SCH (17:19)
--- NOTE | 2019-08-31 18:15 | History and Physical ---
PCP: Dr. Cifuentes at [facility]. CHIEF COMPLAINT: Generalized pain, fever, and cough. HISTORY OF PRESENT ILLNESS: This is an 89-year-old female with past medical history of hypertension, HLD, CAD, stroke with left-sided paralysis, and hypothyroidism, presented to the ER with complaints of generalized weakness, fever, cough, and body aches for the past 3 to 4 days. She denies any nausea, vomiting, diarrhea, or abdominal pain. She reports her caregiver had been sick, but states was told she did not have the flu. She denies any chest pain, has a productive cough, and mild pelvic tenderness with palpation. She denies any syncope, palpitations, shortness of breath, or hemoptysis. In the ER, influenza A was positive. Chest x-ray was unremarkable. UTI was little dirty. She was admitted for further evaluation. PAST MEDICAL HISTORY: 1. Hypertension. 2. High cholesterol. 3. CAD, status post stent. 4. Stroke with left-sided paralysis. 5. Hypothyroidism. PAST SURGICAL HISTORY: 1. She reports cardiac stents. 2. Hysterectomy. 3. Tonsillectomy as a child. 4. Left knee arthroplasty. FAMILY MEDICAL HISTORY: She reports mother of old age and father of cancer. SOCIAL HISTORY: She denies any tobacco, alcohol, or illicit drug use. She lives with her daughter with a caregiver. ALLERGIES: NO KNOWN DRUG ALLERGIES. REVIEW OF SYSTEMS: GENERAL: Fatigue and fever. HEENT: No head trauma. LUNGS: Cough, nonproductive. CARDIOVASCULAR: No chest pain. GI: No nausea or vomiting. NEURO: No dizziness. MUSCULOSKELETAL: Left-sided paralysis due to stroke. SKIN: Dry. PSYCH: Calm. PHYSICAL EXAMINATION: VITAL SIGNS: Temperature 97.9, pulse is 100, respirations 22, blood pressure 129/60, and pulse ox is 92% on 4 L of oxygen. GENERAL: Fatigue and generalized weakness. HEENT: Normocephalic and atraumatic. NECK: Supple. LUNGS: Wheezing with decreased breath sounds. CARDIOVASCULAR: Regular rate and rhythm. GI: Soft and nontender. : Alicia in place. Chronic mild pelvic pain. NEUROLOGIC: Alert, awake, and oriented x3. MUSCULOSKELETAL: Left-sided paralysis due to CVA. SKIN: Dry. PSYCH: Calm. LABORATORY DATA: WBC 12.22, hemoglobin 13.8, hematocrit 41.4, and platelet is 267. Chemistry; sodium 132, potassium 4.9, CO2 26, creatinine 1.07, and estimated GFR 48. Lactic acid 1.1. AST 44 and ALT 21. Creatine kinase 120 and troponin I is 0.034. Albumin 3 and globulin 5. PT 13.7, INR 0.99, and APTT 40.6. UA; yellow, slightly cloudy with negative nitrites, 2+ positive leukocyte esterase trace and 6 to 10 wbc's and bacteria. Influenza A is positive. Group E Streptococcus is negative. IMPRESSION: 1. Influenza A. She was started on Tamiflu. Supportive therapy with IV fluids and Tylenol for fever as needed. Blood cultures pending. 2. Questionably urinary tract infection. Has chronic indwelling Alicia catheter. Urine might be colonized. Since she has mild pelvic tenderness, we will treat with Rocephin for now. 3. Hypertension. We will continue with metoprolol. 4. High cholesterol. Continue statin. 5. History of coronary artery disease. Status post stent. Continue Plavix, aspirin, and statin. 6. Cerebrovascular accident with left-sided paralysis. We will resume home medications, statin, Plavix, aspirin, and metoprolol. 7. Hypothyroidism. We will resume home levothyroxine. 8. Mild leukocytosis. Likely due to the viral infection. We will repeat CBC today. 9. Deep vein thrombosis prophylaxis. We will start on Lovenox daily. 10. Mild hyponatremia. Might be due to fever and dehydration. Was given NS in the ER x2 L. We will repeat labs. Dictated by NATHAN Lucia Damaso Mchugh MD MY/MODL /[id number] Seen and examined. Agree with the findings and plan as documented by NATHAN Carlton. MTDD
--- NOTE | 2019-08-31 19:12 | NUR ---
Received bedside report from day nurse. Patient awake and sitting up in bed, no s/s of distress or c/o pain at this time. All safety measures in place. Will continue to monitor.
--- NOTE | 2019-08-31 19:26 | NUR ---
Patient c/o SOB and wheezing due to cough. Called Dr. Mchugh and received orders for Duoneb Q4H PRN.
[2019-08-31] MEDS ORDERED: ALBUTEROL/IPRATROPIUM 3 ML NEB NEB PRN (19:30)
[2019-08-31] MEDS: ATORVASTATIN 20 MG TAB PO SCH (19:58)
[2019-08-31] MEDS: HEPARIN SOD (PORCINE) 5,000 UNIT/ML VIAL SC SCH (23:13)
--- NOTE | 2019-08-31 23:13 | NUR ---
Alicia care performed. Catheter patent and draining, free of kinks, bag hung below bladder.
[2019-09-01] VITALS (8 sets, daily range): BP systolic 112–151; BP diastolic 64–96
[2019-09-01] MEDS: GUAIFENESIN 600 MG TAB PO PRN ×2 (02:30→21:19)
[2019-09-01] MEDS: LEVOTHYROXINE SODIUM 100 MCG TAB PO SCH (05:28)
[2019-09-01] MEDS: BENZONATATE 100 MG CAP PO PRN ×2 (06:06→23:25)
--- NOTE | 2019-09-01 06:07 | NUR ---
Notified by tele that patient converted to afib. Patient sitting in bed, c/o bad coughing fit. Administered PRN Tessalon Perles. Will continue to monitor.
--- NOTE | 2019-09-01 07:01 | NUR ---
Bedside report given to day nurse. Patient awake and resting in bed, no s/s of distress at this time. All safety measures in place.
--- NOTE | 2019-09-01 08:00 | NUR ---
In to check the pt. and offered to help her with her morning meal and she declined stating that her daughter will be in to bring her so food.
--- NOTE | 2019-09-01 08:43 | NUR ---
RECEIVED CALL FROM STACEY LEMA [facility]: [phone] / FAX: [phone]. Addendum: 09/01/19 at 0845 by Roberta Quezada CM PT ALREADY ON JOSE LEMA
[2019-09-01] MEDS: ASPIRIN 81 MG CHEW TAB PO SCH (09:21)
[2019-09-01] MEDS: OXYBUTYNIN CHLORIDE 5 MG TAB PO SCH (09:22)
[2019-09-01] MEDS: METOPROLOL TARTRATE 25 MG TAB PO SCH (09:23)
--- NOTE | 2019-09-01 09:23 | Diagnostic Imaging Report ---
Exam: Chest one view Comparison: August 30, 2019 Clinical history: Cough Findings: There is interval development of left basilar pulmonary opacity which may represent atelectasis versus early consolidation. The left hemidiaphragm is also obscured, small effusion cannot be excluded. There is no evidence of pneumothorax. The cardiac size is within normal limits. The regional osseous structures are unremarkable. Impression: 1. Increased left basilar pulmonary opacity which may represent atelectasis versus early consolidation. Signed by: Dr. Familia Lilly MD on 09/01/2019 9:20 AM
[2019-09-01] MEDS: CLOPIDOGREL BISULFATE 75 MG TAB PO SCH (09:24)
[2019-09-01] MEDS: HEPARIN SOD (PORCINE) 5,000 UNIT/ML VIAL SC SCH ×2 (09:24→21:20)
[2019-09-01] MEDS: OSELTAMIVIR PHOSPHATE 75 MG CAP PO SCH ×2 (09:24→19:11)
--- NOTE | 2019-09-01 12:49 | NUR ---
The pt's daughter is here and would like to talk to case management about getting her mom into long-term. I contacted the case management coordinator to see notify her.
--- NOTE | 2019-09-01 16:51 | Diagnostic Imaging Report ---
Exam: CT chest Clinical history: Pneumonia Comparison: Chest radiograph, September 01, 2019 Technique: Helical images of the chest were obtained without contrast DOSE REDUCTION: The exams was performed according to the departmental dose-optimization program which includes automated exposure control, adjustment of the mA and/or kV according to patient size and/or use of iterative reconstruction technique. Findings: Focal opacity is noted in the right lung base likely due to postinflammatory changes. There is no evidence of pleural effusion or pneumothorax. The tracheobronchial tree is clear. The cardiac size is within normal limits. Subcentimeter lymph nodes are noted in the pretracheal and precarinal regions. There is no evidence of hilar lymphadenopathy. Atherosclerotic calcification of the coronary vessels are noted. The great vessels are normal in caliber and configuration. The visualized upper abdominal solid organs are unremarkable. Mild anterior compression deformity is noted in the T11 vertebral body most consistent with compression fracture, age indeterminant. Impression: 1. Mild focal opacity in the right lung base which may represent pneumonitis. 2. Mild anterior compression deformity in the T11 vertebral body consistent with compression fracture, age indeterminant. Clinical correlation recommended. Signed by: Dr. Familia Lilly MD on 09/01/2019 4:48 PM
[2019-09-01] MEDS: ALBUTEROL/IPRATROPIUM 3 ML NEB NEB SCH (19:05)
[2019-09-01] MEDS: LACTOBACILLUS ACIDOPHILUS CAPSULE PO SCH (19:11)
[2019-09-01] MEDS: DOXYCYCLINE HYCLATE TABLET 100 MG TAB PO SCH (19:11)
[2019-09-01] MEDS: ATORVASTATIN 20 MG TAB PO SCH (21:19)
[2019-09-02] VITALS (8 sets, daily range): BP systolic 95–135; BP diastolic 50–87
[2019-09-02] MEDS: GUAIFENESIN 600 MG TAB PO PRN (06:17)
[2019-09-02] MEDS: LEVOTHYROXINE SODIUM 100 MCG TAB PO SCH (06:17)
[2019-09-02] MEDS: DOXYCYCLINE HYCLATE TABLET 100 MG TAB PO SCH ×2 (06:17→17:24)
[2019-09-02 07:06] LABS: BASOPHILS % 0.2 % (0.0-1.0); EOSINOPHILS % 0.1 % (0.0-6.0); HEMATOCRIT 36.4 % (34.2-44.1); LYMPHOCYTES # (AUTO) 2.3 (1.0-3.2); LYMPHOCYTES % 15.9 % (18.0-39.1); MEAN CORPUSCULAR HEMOGLOBIN 29.6 pg (28-32); MEAN CORPUSCULAR VOLUME 89.7 fL (81-99); MONOCYTES % 6.6 % (4.4-11.3); NEUTROPHILS # (AUTO) 11.1 (2.1-6.9); NEUTROPHILS % 76.7 % (38.7-80.0); PLATELET COUNT 236 x10e3/uL (140-360); RED BLOOD COUNT 4.06 x10e6/uL (3.6-5.1); RED CELL DISTRIBUTION WIDTH 16.1 % (11.7-14.4)
--- NOTE | 2019-09-02 07:10 | NUR ---
Bedside report given to day nurse. Patient in bed, no s/s of distress or c/o pain at this time. All safety measures in place.
[2019-09-02 07:25] LABS: ANION GAP 16.8 mmol/L (8-16); CALCIUM 8.7 mg/dL (8.4-10.2); CREATININE, SERUM 0.95 mg/dL (0.57-1.11); POTASSIUM 3.8 mmol/L (3.5-5.1)
[2019-09-02] MEDS: ALBUTEROL/IPRATROPIUM 3 ML NEB NEB SCH ×4 (08:08→18:55)
[2019-09-02] MEDS: LACTOBACILLUS ACIDOPHILUS CAPSULE PO SCH ×2 (09:18→17:24)
[2019-09-02] MEDS: CLOPIDOGREL BISULFATE 75 MG TAB PO SCH (09:18)
[2019-09-02] MEDS: ASPIRIN 81 MG CHEW TAB PO SCH (09:18)
[2019-09-02] MEDS: OXYBUTYNIN CHLORIDE 5 MG TAB PO SCH (09:18)
[2019-09-02] MEDS: OSELTAMIVIR PHOSPHATE 75 MG CAP PO SCH ×2 (09:19→17:24)
[2019-09-02] MEDS: HEPARIN SOD (PORCINE) 5,000 UNIT/ML VIAL SC SCH ×2 (09:19→21:00)
--- NOTE | 2019-09-02 11:23 | NUR ---
SPOKE WITH PT SHE STATES NO, BUT SPOKE WITH DAUGHTER AND SHE STATES SHE REFUSES EVERYTHING AND SHE NOT COMING HOME DAUGHTER SERGIO [phone] STATES WANTS [facility] AND HAS BEEN THERE PRIOR AND NEEDS TO GO BACK. WILL FAX CLINICALS AND [facility], HAD CONVERSATION THAT DAUGHTER HAS TO HAVE THE CONVERSATION WITH HER MOTHER ABOUT NOT RETURNING HOME.
--- NOTE | 2019-09-02 11:27 | NUR ---
DAUGHTER STATES POA
[2019-09-02] MEDS ORDERED: ONDANSETRON HCL INJ 2MG/ML 2ML 2 MG/ML VIAL IV PRN (11:30)
[2019-09-02] MEDS: CEFTRIAXONE SOD 1 GM/NS 50 ML 50 ML IV SCH (14:20)
[2019-09-02] MEDS: LACTATED RINGER'S 1,000 ML IV SCH (14:20)
--- NOTE | 2019-09-02 14:50 | NUR ---
[facility] RECEIVED PACKET WILL GET MOT TO ME SOON POSSIBLE FOR PT TO TRANSFER TO THEM ON Friday
--- NOTE | 2019-09-02 15:48 | NUR ---
[facility] DISCHARGE INFORMATION PATIENT HAS BEEN ACCEPTED TO: NAME: SAJAN MIKE AD[address]ESS:[id number] [facility] ACCEPTING PARTNER MANAGER: POPPY TSE MD: DERIK ROOM:[address] NURSE CALL REPORT TO: [phone] IMM SIGNED AND OBTAINED (if applicable): YES THE FOLLOWING DOCUMENTS MUST ACCOMPANY PATIENT FOR TRANSFER: COPIED CHART:PACKET AT STATION
--- NOTE | 2019-09-02 15:50 | NUR ---
PT TO GO ON SAT WILL LET [facility] KNOW TO SET UP TRANSPORT FOR 8AM.
--- NOTE | 2019-09-02 19:15 | NUR ---
patient received awake, alert, lying quietly in bed. vss. no c/o pain noted. ivf continue to infuse without difficulty. pm assessment complete. bed alarm on for patient safety. call alejo placed within reach. patient instructed to call for assistance when needed.
--- NOTE | 2019-09-02 19:44 | NUR ---
PATIENT IN STABLE CONDITION WITH NO S/S OF RESPIRATORY DISTRESS. NO PAIN VOICED. IV FLUIDS INFUSING. TELEMETRY APPLIED. ALLEVYN APPLIED TO SACRUM AREA- DIAPER APPLIED. HEEL PROTECTORS APPLIED. CALL LIGHT IS WITHIN REACH, PATIENT INSTRUCTED TO CALL FOR ASSISTANCE NEEDED. BED ALARM APPLIED. BEDSIDE SHIFT REPORT GIVEN TO ONCOMING NURSE.
[2019-09-02] MEDS: ATORVASTATIN 20 MG TAB PO SCH (21:00)
[2019-09-03] VITALS (7 sets, daily range): BP systolic 106–153; BP diastolic 53–75
--- NOTE | 2019-09-03 01:30 | NUR ---
bath/skin care/fernandes care provided at this time. fernandes draining clear, yellow urine to bsd.
--- NOTE | 2019-09-03 02:08 | Consultation ---
DATE OF CONSULTATION: 09/02/2019 Pulmonary Medicine Consult HISTORY OF PRESENT ILLNESS: Ms. Duong is a pleasant 89-year-old female with influenza. The patient presented to [facility] on August 30, 2019 with weakness. The patient had associated fevers, cough, and body aches. Symptoms were already present for about four days prior to coming to the hospital. The patient did receive the flu shot. However, when she came to the emergency room, she underwent a flu assay for which it was positive for influenza A. Chest x-ray showed atelectasis mostly. However, CT chest demonstrates some small ground-glass opacities. The patient is admitted. I am consulted. 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 The patient denies having dysphagia, denies having dysphonia, denies having a PEG tube hypothyroid state. No asthma, no allergies in the past. PAST SURGICAL HISTORY: Cardiac stent, hysterectomy, tonsillectomy as a child, left knee arthroplasty. MEDICATIONS: Medication list reviewed per the chart record. ALLERGIES: NO KNOWN DRUG ALLERGIES. SOCIAL HISTORY: No smoking. No drinking. No drugs. The patient lives with daughter. The patient said she normally gets out of the wheelchair maximum, but she has been while since she got out to the wheelchair. She was a former nurse's aide. FAMILY HISTORY: Noncontributory. REVIEW OF SYSTEMS: GENERAL: No weight changes. OPHTHALMOLOGIC: No double vision. ENT: No mouth ulcers. ENDOCRINE: No recent thyroid dyscontrol known. LUNGS: No hemoptysis. CARDIAC: No recent MO. GI: No diarrhea. : No blood in urine. NEUROLOGIC: No seizures. PSYCHIATRIC: No depression. MUSCULOSKELETAL: Mild arthritis. PHYSICAL EXAMINATION: VITAL SIGNS: Afebrile, vital signs noted, reviewed per the chart record. GENERAL: In no acute distress. Alert and calm. She is talking. Intermittent coughing. HEENT: Normocephalic, atraumatic. NECK: Supple. Throat midline. LUNGS: Bilateral air entry with hmkc-lo-mlspttrv rhonchi, rare wheezing. CARDIOVASCULAR: S1, S2. No murmurs, rubs, or gallops. ABDOMINAL: Soft, nontender. EXTREMITIES: No clubbing, no cyanosis. There is trace edema. INTEGUMENT: No rash, although there is venous stasis changes to her bilateral legs. NEUROLOGIC: Left-sided paralysis, but both feet are also weak and downgoing at rest. LABORATORY DATA: Reviewed per the chart record. Originally, she came in urinalysis with 6 to 10 white blood cells. IMPRESSION AND PLAN: 1. Influenza A with pneumonia. 2. Possible community-acquired tracheobronchitis/pneumonia, superimposed. 3. Debility/weakness. 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 4. Hypertension. 5. Coronary artery disease, status post stenting. 6. Hyperlipidemia. 7. Hypothyroidism by history. We will continue to follow the status clinically as she is taking nutrition orally. The patient denies history of dysphagia or dysphonia after previous stroke, although that was a long time ago. Aspiration precautions. Continue Tamiflu. Antibiotics for additional bacterial pathogens. Encourage expectoration and we will add Mucomyst. If patient can expectorate and clear secretions better, no bronchoscopy will be planned. Follow up closely. Thank you very much, Dr. Mchugh for this consult. Please call for questions. MD FERNANDO Amor/JUANPABLO /[id number] DAMIR
[2019-09-03] MEDS: LACTATED RINGER'S 1,000 ML IV SCH ×3 (05:24→21:24)
[2019-09-03] MEDS: LEVOTHYROXINE SODIUM 100 MCG TAB PO SCH (05:25)
[2019-09-03] MEDS: DOXYCYCLINE HYCLATE TABLET 100 MG TAB PO SCH ×2 (05:25→16:39)
[2019-09-03 06:07] LABS: BASOPHILS % 0.1 % (0.0-1.0); EOSINOPHILS % 0.3 % (0.0-6.0); HEMATOCRIT 36.3 % (34.2-44.1); HEMOGLOBIN 11.6 g/dL (12.0-16.0); LYMPHOCYTES # (AUTO) 2.4 (1.0-3.2); LYMPHOCYTES % 22.4 % (18.0-39.1); MEAN CORPUSCULAR HEMOGLOBIN 28.9 pg (28-32); MEAN CORPUSCULAR VOLUME 90.5 fL (81-99); MONOCYTES # (AUTO) 0.7 (0.2-0.8); MONOCYTES % 6.8 % (4.4-11.3); NEUTROPHILS # (AUTO) 7.3 (2.1-6.9); NEUTROPHILS % 69.8 % (38.7-80.0); PLATELET COUNT 232 x10e3/uL (140-360); RED BLOOD COUNT 4.01 x10e6/uL (3.6-5.1); RED CELL DISTRIBUTION WIDTH 16.2 % (11.7-14.4)
[2019-09-03 06:24] LABS: ANION GAP 12.7 mmol/L (8-16); CALCIUM 8.8 mg/dL (8.4-10.2); CREATININE, SERUM 1.25 mg/dL (0.57-1.11); POTASSIUM 3.7 mmol/L (3.5-5.1)
[2019-09-03] MEDS ORDERED: ACETYLCYSTEINE 20% INHAL SOLN 30 ML VIAL INH SCH ×2 (07:00→15:00)
[2019-09-03] MEDS: ALBUTEROL/IPRATROPIUM 3 ML NEB NEB SCH ×3 (07:14→15:35)
--- NOTE | 2019-09-03 08:38 | Diagnostic Imaging Report ---
Examination: Single AP view of the chest. COMPARISON: 09/01/2019, CT scan of the chest without contrast 09/01/2019 INDICATION: Pneumonia DISCUSSION: Lung volumes are low with improved patchy opacity in the left lung base. Right lower lobe airspace disease seen on the comparison CT is poorly visualized by plain radiography. No new consolidations. Unchanged cardiomediastinal contour with tortuous thoracic aorta and atherosclerotic calcification. Regional skeletal structures are intact. IMPRESSION: Improved subsegmental atelectasis of the left lung base. Right lower lobe airspace disease suspicious for pneumonia described on comparison CT is poorly visualized by plain radiography. Signed by: Dr. Oscar Duffy M.D. on 09/03/2019 8:35 AM
[2019-09-03] MEDS: HEPARIN SOD (PORCINE) 5,000 UNIT/ML VIAL SC SCH ×2 (09:00→22:16)
[2019-09-03] MEDS: LACTOBACILLUS ACIDOPHILUS CAPSULE PO SCH ×2 (09:13→16:39)
[2019-09-03] MEDS: OXYBUTYNIN CHLORIDE 5 MG TAB PO SCH (09:13)
[2019-09-03] MEDS: ASPIRIN 81 MG CHEW TAB PO SCH (09:13)
[2019-09-03] MEDS: CLOPIDOGREL BISULFATE 75 MG TAB PO SCH (09:13)
[2019-09-03] MEDS: OSELTAMIVIR PHOSPHATE 75 MG CAP PO SCH ×2 (09:13→16:39)
--- NOTE | 2019-09-03 11:23 | NUR ---
Spoke with Dr. Mchugh to report that pt is running AFIB in the range of 130-150. Received orders to give Cardizem 10mg IVP x1 dose. Pt denies having any past medical history of irregular HR.
[2019-09-03] MEDS ORDERED: DILTIAZEM HCL 5 MG/ML 5 ML VIAL IV ONE (11:35)
--- NOTE | 2019-09-03 11:53 | NUR ---
Pulmonary Medicine DATE 09/03/2019 SUBJECTIVE Still with retained secretions RA FiO2 Weak still Some Afib 140s bpm REVIEW OF SYSTEMS: No double vision. No diarrhea. PHYSICAL EXAMINATION: VITAL SIGNS: Afebrile, vital signs noted per the chart record. GENERAL: no acute distress. Alert and calm. Intermittent coughing. HEENT: Normocephalic, atraumatic. NECK: Supple. Throat midline. LUNGS: Bilateral air entry with opsu-md-rqqcwlqe rhonchi, rare wheezing. CARDIOVASCULAR: S1, S2. No murmurs, rubs, or gallops. ABDOMINAL: Soft, nontender. EXTREMITIES: No clubbing, no cyanosis. trace edema. INTEGUMENT: No rash, venous stasis changes to legs. NEUROLOGIC: Left-sided paralysis, but both feet are also weak and downgoing at rest. LABORATORY DATA: IMPRESSION AND PLAN: 1. Influenza A with pneumonia. 2. Possible community-acquired tracheobronchitis/pneumonia, superimposed. --insufficient cough 3. Debility/weakness. 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 She denies bulbar dysfunction, but I am suspicious about the remote history. 4. Hypertension. 5. Coronary artery disease, s/p stenting. 6. Hyperlipidemia. 7. Hypothyroidism by history. We will continue to follow the status clinically as she is taking nutrition orally. The patient denies history of dysphagia or dysphonia after previous stroke, although that was a long time ago. Aspiration precautions. Continue Tamiflu. Antibiotics for additional bacterial pathogens. Encourage expectoration and continue Mucomyst. Tentative bronchoscopy tomorrow-- patient can go home after bronchoscopy if she continues to improve. Cardiac issues / arrythmia per designated Follow up closely. Thank you very much, Dr. Mchugh for this consult. Please call for questions.
[2019-09-03] MEDS ORDERED: ACETAMINOPHEN 325 MG TAB ONE (13:18)
[2019-09-03] MEDS ORDERED: DIGOXIN INJ 0.25 MG/ML 2 ML AMP IV ONE (13:25)
[2019-09-03] MEDS: CEFTRIAXONE SOD 1 GM/NS 50 ML 50 ML IV SCH (15:41)
[2019-09-03] MEDS ORDERED: ENOXAPARIN SOD INJ 40 MG/0.4 ML SYR SC SCH (17:00)
--- NOTE | 2019-09-03 19:30 | NUR ---
Received report from day nurse. Patient is resting comfortably in the bed. bed is in the lowest position and call alejo is within reach. Will continue to monitor patient.
[2019-09-03] MEDS: IPRATROPIUM BROMIDE 0.02% 2.5 ML NEB NEB SCH ×2 (19:45→23:20)
[2019-09-03] MEDS: ACETYLCYSTEINE 200 MG/ML 4ML VIAL INH SCH ×2 (19:45→23:00)
[2019-09-03] MEDS: ATORVASTATIN 20 MG TAB PO SCH (21:24)
[2019-09-04] VITALS (7 sets, daily range): BP systolic 130–170; BP diastolic 59–90
[2019-09-04] MEDS: IPRATROPIUM BROMIDE 0.02% 2.5 ML NEB NEB SCH ×6 (00:25→20:40)
[2019-09-04] MEDS: LEVOTHYROXINE SODIUM 100 MCG TAB PO SCH (06:00)
[2019-09-04] MEDS: DOXYCYCLINE HYCLATE TABLET 100 MG TAB PO SCH (06:00)
--- NOTE | 2019-09-04 06:00 | NUR ---
patient is not tolerating morning PO medications. MD notified. Received new order to D/C Doxycycline and Levothyroxine PO tablets. Received new order for Zithromax IV daily.
[2019-09-04 06:36] LABS: ANION GAP 14.9 mmol/L (8-16); CALCIUM 9.1 mg/dL (8.4-10.2); CREATININE, SERUM 1.17 mg/dL (0.57-1.11); POTASSIUM 3.9 mmol/L (3.5-5.1)
[2019-09-04 06:42] LABS: MAGNESIUM 1.6 MG/DL (1.3-2.1)
[2019-09-04] MEDS: ACETYLCYSTEINE 200 MG/ML 4ML VIAL INH SCH ×3 (07:01→20:40)
--- NOTE | 2019-09-04 07:01 | NUR ---
patient is resting in bed. walking rounds complete. bed is in lowest position and call alejo is within reach.
[2019-09-04 07:02] LABS: THYROID STIMULATING HORMONE 0.466 uIU/mL (0.350-4.940)
[2019-09-04] MEDS: LACTOBACILLUS ACIDOPHILUS CAPSULE PO SCH ×2 (09:00→18:03)
[2019-09-04] MEDS: ASPIRIN 81 MG CHEW TAB PO SCH (09:00)
[2019-09-04] MEDS: CLOPIDOGREL BISULFATE 75 MG TAB PO SCH (09:00)
[2019-09-04] MEDS: OXYBUTYNIN CHLORIDE 5 MG TAB PO SCH (09:00)
[2019-09-04] MEDS: OSELTAMIVIR PHOSPHATE 75 MG CAP PO SCH (09:00)
[2019-09-04] MEDS: AZITHROMYCIN 500MG/NS 250 ML 250 ML IV SCH (09:26)
[2019-09-04] MEDS: HEPARIN SOD (PORCINE) 5,000 UNIT/ML VIAL SC SCH ×2 (09:27→21:00)
[2019-09-04] MEDS: LACTATED RINGER'S 1,000 ML IV SCH ×2 (09:28→12:15)
[2019-09-04] MEDS ORDERED: CHLORASEPTIC SPRAY 177 ML BTL MM PRN (12:15)
--- NOTE | 2019-09-04 13:03 | NUR ---
Pulmonary Medicine DATE 09/04/2019 SUBJECTIVE RA fio2 breathing is better, possibly due to mucomyst? she doesnt like the VEST CPT, staff is not sure if it is benefitting patient with eating smaller amounts, some throat pain REVIEW OF SYSTEMS: no bleed, no BRBPR PHYSICAL EXAMINATION: VITAL SIGNS: vital signs noted per the chart record. GENERAL: no acute distress. Alert and calm. HEENT: Normocephalic, atraumatic. NECK: Supple. Throat midline. LUNGS: Bilateral air entry with vzjp-zo-tkydfzvm rhonchi, rare wheezing. CARDIOVASCULAR: S1, S2. No murmurs, rubs, or gallops. ABDOMINAL: Soft, nontender. EXTREMITIES: No clubbing, no cyanosis. trace edema. INTEGUMENT: No rash, venous stasis changes to legs. NEUROLOGIC: Left-sided paralysis, but both feet are also weak and downgoing toes at rest. LABORATORY DATA: IMPRESSION AND PLAN: 1. Influenza A with pneumonia. 2. Possible community-acquired tracheobronchitis/pneumonia, superimposed. --insufficient cough possible 3. Debility/weakness. 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 She denies bulbar dysfunction, but I am suspicious about the remote history. 4. Hypertension. 5. Coronary artery disease, s/p stenting. 6. Hyperlipidemia. 7. Hypothyroidism by history. Nutrition modified, softer diet Cough medications PRN Continue Tamiflu. Antibiotics for additional bacterial pathogens. Encourage expectoration and continue Mucomyst. Hopefully working --If patient improves sufficiently, no bronchoscopy will be planned --If needed will perform bronchoscopy on Friday Cardiac issues / arrythmia per designated Follow up closely. Thank you very much, Dr. Mchugh for this consult. Please call for questions.
[2019-09-04] MEDS: CEFTRIAXONE SOD 1 GM/NS 50 ML 50 ML IV SCH (15:39)
--- NOTE | 2019-09-04 18:14 | Consultation ---
DATE OF CONSULTATION: 09/04/2019 Cardiac Consultation REASON FOR CONSULTATION: Atrial fibrillation. HISTORY OF PRESENT ILLNESS: An 89-year-old lady admitted with fevers, chills, cough, and body aches. She was seen in the emergency room. She was given some treatment, however, she continues to have quite a lot of symptoms. She came back, and she is admitted to the hospital on the August, confirmed diagnosis of influenza A. CT of chest showed small ground opacity. She is having severe shortness of breath, cough, fever, chills, and she is not feeling well at all. She is wheezing, and she is barely can breathe. The patient went into atrial fibrillation with rapid ventricular response. Cardiac consultation is obtained. It seems the patient converted spontaneously to normal sinus rhythm. The patient activity to certain extent is limited. She stays at home with her daughter, who takes care of her. There is prior history of coronary artery disease and PCI few years back. There is no angina. Her activities are very limited. She can walk with a walker and do minimal activity if any. REVIEW OF SYSTEMS: GENERAL: Fever, chills. HEENT: Congestion, cough. PULMONARY: Severe cough, shortness of breath, and pleuritic chest pain. CARDIAC: No angina. No prior myocardial infarction, but she had PCI. GI: No hematemesis. No melena. : No hematuria. No dysuria. MUSCULOSKELETAL: Aches and pain all over. NEUROLOGIC: No seizure activity. No localized deficits. SOCIAL HISTORY: The patient is a . She is able to ambulate to certain extent, but she uses wheelchair. She is able to move out and get out of the wheelchair. She is a former nurse aide. She is staying with her daughter and she is taking care of her. CURRENT MEDICATIONS: 1. IV fluids. 2. Aspirin 81 mg a day. 3. Heparin subcu. 4. Nebulizers. 5. Ceftriaxone. 6. Tamiflu. 7. Atorvastatin. 8. Oxybutynin. 9. Following admission, the patient also on Lopressor 25 mg twice a day. ALLERGIES: NONE. PAST MEDICAL HISTORY: 1. CAD, prior PCI. 2. Hysterectomy. 3. Tonsillectomy. 4. Left knee surgery. 5. Hypertension. 6. Hyperlipidemia. 7. 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 8. Easy fatigability and debility and the patient is using wheelchair, although she is able to get out of wheelchair and to do some activity. PHYSICAL EXAMINATION: VITAL SIGNS: Height of 5 feet 10 inches, weight of 155 pounds, blood pressure 130/80, heart rate of 80, and respiratory rate of 19. HEENT: Pupils are reactive, although congestion and hoarse voice is noted. NECK: No elevation of jugular venous pulsation. CHEST: Crackles, rhonchi, and wheezes. HEART: PMI in fifth left intercostal space. Normal first and second heart sounds, with ejection systolic murmur. ABDOMEN: Soft. Bowel sounds are present. EXTREMITIES: Very thin skin with easy bruising. NEUROLOGIC: Left body-sided weakness. LABORATORY DATA: Sodium of 138, potassium of 3.9, BUN of 34, creatinine of 1.2, and glucose of 78. White blood cell count of 10.5, hemoglobin of 11.6, hematocrit of 36%, and platelet count of 152,000. IMAGING DATA: Chest x-ray and CT as per report. EKG is not available. Other finding, influenza A is positive. IMPRESSION AND PLAN: 1. Influenza A complicated with pneumonia. 2. Prior history of cerebrovascular accident with left-sided hemiplegia, and the patient is mostly bed bound. 3. Hypertension. 4. Coronary artery disease, status post percutaneous coronary intervention. 5. Hyperlipidemia. 6. Hypothyroidism. 7. Transient atrial fibrillation. For the time being, we will recommend observation, continuing of the current treatment. Probably, we should discuss with the patient and family about the issue of anticoagulation because her MERVAT score really is high. Regardless, we will have more discussion with the patient and her daughter. For the time being, we will continue current medication. We will observe her progression with you. MD JESSENIA Ayala/JUANPABLO /[id number]
--- NOTE | 2019-09-04 19:20 | NUR ---
received report from day nurse. bedside rounds complete. patient is resting comfortably in bed. bed is in lowest position and call alejo is within reach. will continue to monitor patient.
[2019-09-04] MEDS: ATORVASTATIN 20 MG TAB PO SCH (21:42)
[2019-09-05] VITALS (8 sets, daily range): BP systolic 128–179; BP diastolic 60–86
[2019-09-05] MEDS: LACTATED RINGER'S 1,000 ML IV SCH (02:00)
[2019-09-05] MEDS: IPRATROPIUM BROMIDE 0.02% 2.5 ML NEB NEB SCH ×6 (03:25→23:30)
--- NOTE | 2019-09-05 06:38 | NUR ---
patient is resting in the bed. bed is in the lowest position and call light is within reach. denies pain or discomfort at this time.
[2019-09-05] MEDS: ACETYLCYSTEINE 200 MG/ML 4ML VIAL INH SCH ×3 (06:45→23:30)
[2019-09-05 06:48] LABS: BASOPHILS % 0.1 % (0.0-1.0); EOSINOPHILS % 0.2 % (0.0-6.0); HEMATOCRIT 31.6 % (34.2-44.1); LYMPHOCYTES # (AUTO) 2.8 (1.0-3.2); LYMPHOCYTES % 16.8 % (18.0-39.1); MEAN CORPUSCULAR HEMOGLOBIN 29.4 pg (28-32); MEAN CORPUSCULAR HGB CONC 31.6 g/dL (31-35); MEAN CORPUSCULAR VOLUME 92.9 fL (81-99); MONOCYTES # (AUTO) 0.9 (0.2-0.8); MONOCYTES % 5.3 % (4.4-11.3); NEUTROPHILS # (AUTO) 12.6 (2.1-6.9); NEUTROPHILS % 76.7 % (38.7-80.0); PLATELET COUNT 224 x10e3/uL (140-360); RED CELL DISTRIBUTION WIDTH 16.1 % (11.7-14.4)
[2019-09-05 06:55] LABS: ALANINE AMINOTRANSFERASE 16 IU/L (0-55); ALBUMIN/GLOBULIN RATIO 0.6 (0.8-2.0); ALKALINE PHOSPHATASE 122 IU/L (40-150); BLOOD UREA NITROGEN 25 mg/dL (7-26); BUN/CREATININE RATIO 31 (6-25); CALCIUM 8.6 mg/dL (8.4-10.2); CHLORIDE 109 mmol/L (98-107); CHOL/HDL RATIO 3.6 (3.0-3.6); CHOLESTEROL 82 MD/DL (0-199); CREATININE, SERUM 0.81 mg/dL (0.57-1.11); EST GLOMERULAR FILTRATION RATE > 60 ML/MIN (60-); GLUCOSE 78 mg/dL (74-118); HDL CHOLESTEROL 23 MG/DL (40-60); LDL CHOLESTEROL 46 MG/DL (60-130); SODIUM 139 mmol/L (136-145); TRIGLYCERIDES 65 MG/DL (0-149)
[2019-09-05 07:14] LABS: THYROID STIMULATING HORMONE 0.494 uIU/mL (0.350-4.940)
[2019-09-05 07:16] LABS: CARBON DIOXIDE 20 mmol/L (22-29)
[2019-09-05] MEDS: AZITHROMYCIN 500MG/NS 250 ML 250 ML IV SCH (08:50)
[2019-09-05] MEDS: CLOPIDOGREL BISULFATE 75 MG TAB PO SCH (09:05)
[2019-09-05] MEDS: HEPARIN SOD (PORCINE) 5,000 UNIT/ML VIAL SC SCH ×2 (09:05→21:27)
[2019-09-05] MEDS: ASPIRIN 81 MG CHEW TAB PO SCH (09:05)
[2019-09-05] MEDS: LACTOBACILLUS ACIDOPHILUS CAPSULE PO SCH ×2 (09:05→16:49)
[2019-09-05] MEDS: OXYBUTYNIN CHLORIDE 5 MG TAB PO SCH (09:05)
--- NOTE | 2019-09-05 10:27 | NUR ---
Y aware WBC 16.45 today and 10.50 on 09/03/19. See orders
--- NOTE | 2019-09-05 11:19 | Diagnostic Imaging Report ---
EXAMINATION: CHEST SINGLE (PORTABLE) INDICATION: ^R/O ASPIRATION PNA ^[id number] ^[id number] COMPARISON: Chest x-ray 09/03/2019. FINDINGS: AP view TUBES and LINES: None. LUNGS: Interval development of patchy density in the inferior right upper lobe bordering the minor fissure associated with elevation of the right hemidiaphragm which may represent atelectasis versus pneumonia in the proper clinical setting. Increase in patchy density in the left lung base with obscuration of the left hemidiaphragm. PLEURA: Trace left pleural effusion. No pneumothorax. HEART AND MEDIASTINUM: The cardiomediastinal silhouette is is mildly enlarged. Considerations of the aortic arch. There are atherosclerotic calcifications within the aorta. BONES AND SOFT TISSUES: Diffuse osteopenia No acute osseous lesion. Soft tissues are unremarkable. UPPER ABDOMEN: No free air under the diaphragm. IMPRESSION: Inferior right upper lobe atelectasis versus pneumonia. Possible developing pneumonia in the left lung base. Signed by: Dr. No Méndez M.D. on 09/05/2019 11:17 AM
[2019-09-05] MEDS ORDERED: SODIUM CHLORIDE 0.9% 250ML 250 ML ONE (11:35)
[2019-09-05] MEDS: CEFTRIAXONE SOD 1 GM/NS 50 ML 50 ML IV SCH (12:48)
[2019-09-05] MEDS: METRONIDAZOLE 500MG/NS 100ML 100 ML IV SCH ×2 (13:28→21:27)
--- NOTE | 2019-09-05 14:21 | NUR ---
aware of chest x-ray results
--- NOTE | 2019-09-05 14:59 | NUR ---
Pulmonary Medicine DATE 09/05/2019 SUBJECTIVE Patient remains with retained airway secretions. Sometimes expectorating phlegm. On mucomyst, but cannot tolerated VEST CPT due to pain. d/w patient and d/w daughter. patient was offered a bronchoscopy 'wash out' due to persistence of symptoms without definite improvement. I discussed with t he daughter who was trained as a surgical sales representative. Daughter claims the patient has numerous atherosclerotic blockages, including a few 100% blockages and only has '1 open vessel at the top of the heart'. patient daughter claims that patient is high risk for anesthesia and was told that doctors are surprised that the patient is still alive. i discussed with cardiology regarding surgical/bronchoscopy needs, and need for preoperative cardiology evaluation for safety of anesthesia. REVIEW OF SYSTEMS: no bleed, no BRBPR PHYSICAL EXAMINATION: VITAL SIGNS: vital signs noted per the chart record. GENERAL: no acute distress. Alert and calm. HEENT: Normocephalic, atraumatic. NECK: Supple. Throat midline. LUNGS: Bilateral air entry with euli-gf-pjgoiyjg rhonchi, rare wheezing. CARDIOVASCULAR: S1, S2. No murmurs, rubs, or gallops. ABDOMINAL: Soft, nontender. EXTREMITIES: No clubbing, no cyanosis. trace edema. INTEGUMENT: No rash, venous stasis changes to legs. NEUROLOGIC: Left-sided paralysis, but both feet are also weak and downgoing toes at rest. LABORATORY DATA: IMPRESSION AND PLAN: 1. Influenza A with pneumonia. 2. Possible community-acquired tracheobronchitis/pneumonia, superimposed. --insufficient cough possible 3. Debility/weakness. 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 She denies bulbar dysfunction, but I am suspicious about the remote history. 4. Hypertension. 5. Coronary artery disease, s/p stenting. 6. Hyperlipidemia. 7. Hypothyroidism by history. Nutrition, PO diet Cough medications PRN Continue Tamiflu. Antibiotics for additional bacterial pathogens. Encourage expectoration and continue Mucomyst. Hopefully working --Reasonable to consider bronchoscopy, but family cites a large anesthesia risk due to CAD. I can do bronchoscopy if cardiology and the patient/daughter feel the anesthesia risk is acceptable. No procedure to be scheduled yet while awaiting more information. Cardiac issues / arrythmia per designated Follow up closely. Thank you very much, Dr. Mchugh for this consult. Please call for questions.
--- NOTE | 2019-09-05 19:04 | NUR ---
Report given to oncoming nurse of patient's status. Resting in bed with eyes closed. Arousable to verbal stimuli. Respirations even and unlabored. O2 2L NC. Side rails upx2, call light within reach, bed alarm on.
[2019-09-05] MEDS: ATORVASTATIN 20 MG TAB PO SCH (21:27)
[2019-09-06] VITALS (8 sets, daily range): BP systolic 112–184; BP diastolic 53–98
[2019-09-06] MEDS: IPRATROPIUM BROMIDE 0.02% 2.5 ML NEB NEB SCH ×7 (03:00→23:50)
[2019-09-06] MEDS: METRONIDAZOLE 500MG/NS 100ML 100 ML IV SCH ×3 (05:28→21:26)
[2019-09-06 06:39] LABS: BASOPHILS % 0.3 % (0.0-1.0); EOSINOPHILS # (AUTO) 0.1 (0.0-0.4); EOSINOPHILS % 0.4 % (0.0-6.0); HEMATOCRIT 34.3 % (34.2-44.1); HEMOGLOBIN 10.9 g/dL (12.0-16.0); LYMPHOCYTES # (AUTO) 2.9 (1.0-3.2); LYMPHOCYTES % 24.8 % (18.0-39.1); MEAN CORPUSCULAR HEMOGLOBIN 29.2 pg (28-32); MEAN CORPUSCULAR HGB CONC 31.8 g/dL (31-35); MONOCYTES # (AUTO) 0.8 (0.2-0.8); MONOCYTES % 6.7 % (4.4-11.3); NEUTROPHILS # (AUTO) 7.9 (2.1-6.9); NEUTROPHILS % 67.2 % (38.7-80.0); PLATELET COUNT 274 x10e3/uL (140-360); RED BLOOD COUNT 3.73 x10e6/uL (3.6-5.1)
--- NOTE | 2019-09-06 06:40 | NUR ---
patient is resting in the bed. bed is in the lowest position and call light is within reach. denies pain or discomfort at this time.
[2019-09-06] MEDS: LACTOBACILLUS ACIDOPHILUS CAPSULE PO SCH ×2 (08:30→15:11)
[2019-09-06] MEDS: ASPIRIN 81 MG CHEW TAB PO SCH (08:30)
[2019-09-06] MEDS: AZITHROMYCIN 500MG/NS 250 ML 250 ML IV SCH (08:30)
[2019-09-06] MEDS: CLOPIDOGREL BISULFATE 75 MG TAB PO SCH (08:30)
[2019-09-06] MEDS: HEPARIN SOD (PORCINE) 5,000 UNIT/ML VIAL SC SCH ×2 (08:30→21:00)
[2019-09-06] MEDS: OXYBUTYNIN CHLORIDE 5 MG TAB PO SCH (08:30)
[2019-09-06] MEDS: AMIODARONE HCL 200 MG TAB PO SCH (10:30)
--- NOTE | 2019-09-06 10:38 | NUR ---
Speech Therapy suggesting MBS for further evaluation. Notified Niurka, patient's daughter of recommendations. Per Daughter okay to proceed with MBS if okay with doctor. Paged to notify of speech therapy recommendations
[2019-09-06] MEDS: HYDRALAZINE HCL 20 MG/ML VIAL IV PRN (11:52)
[2019-09-06] MEDS: ACETYLCYSTEINE 200 MG/ML 4ML VIAL INH SCH ×3 (11:57→20:10)
--- NOTE | 2019-09-06 12:05 | NUR ---
Pulmonary Medicine DATE 09/06/2019 SUBJECTIVE Expectorating secretions intermittently patient with decreased pharyngeal sensation, often needs deep oralpharyngeal suction to bring up the contents. 2 L/min oxygen Eating poorly overall, but today NPO while speech therapy is assessing the patient REVIEW OF SYSTEMS: no bleed, no BRBPR PHYSICAL EXAMINATION: VITAL SIGNS: vital signs noted per the chart record. GENERAL: no acute distress. Alert and calm. HEENT: Normocephalic, atraumatic. NECK: Supple. Throat midline. LUNGS: Bilateral air entry with twdi-rj-ghwkihnq rhonchi, rare wheezing. CARDIOVASCULAR: S1, S2. No murmurs, rubs, or gallops. ABDOMINAL: Soft, nontender. EXTREMITIES: No clubbing, no cyanosis. trace edema. INTEGUMENT: No rash, venous stasis changes to legs. NEUROLOGIC: Left-sided paralysis, but both feet are also weak and downgoing toes at rest. LABORATORY DATA: wbc 11. IMPRESSION AND PLAN: 1. Influenza A with pneumonia. 2. Possible community-acquired tracheobronchitis/pneumonia, superimposed. --insufficient cough 3. Debility/weakness. 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 Denies bulbar dysfunction, but there is active posterior pharyngeal numbness. 4. Hypertension. 5. Coronary artery disease, s/p stenting. 6. Hyperlipidemia. 7. Hypothyroidism by history. Speech therapy dysphagia evaluation, NPO awaiting evaluation Cough medications PRN Continue Tamiflu. Antibiotics for additional bacterial pathogens. Encourage expectoration and continue Mucomyst. Hopefully working. Patient is expectorating slowly. Cardiac issues / arrhythmia per designated Follow up closely. Thank you very much, Dr. Mchugh for this consult. Please call for questions.
--- NOTE | 2019-09-06 12:51 | Progress Note ---
DATE: 09/06/2019 CONSULTANTS: 1. Dr. Kike Mendoza with Pulmonary. 2. Dr. Rolon with Cardiology. SUBJECTIVE: Reports she is feeling sick today. Complaining of cough and speech therapist has done swallowing test and recommending MBS, as she is having trouble swallowing liquids. We will keep n.p.o. for MBS. OBJECTIVE: VITAL SIGNS: Temperature 97.3, pulse is 81, respirations 20, blood pressure 136/93, and pulse ox is 95% on 3 L of nasal cannula. GENERAL: Fatigue and generalized weakness. HEENT: Normocephalic and atraumatic. NECK: Supple. LUNGS: Wheezing and crackles. CARDIOVASCULAR: Regular rate and rhythm. GI: Soft and nontender. : Alicia in place, chronic. NEUROLOGIC: Alert, awake, and oriented x3. MUSCULOSKELETAL: Left-sided paralysis due to CVA history. SKIN: Dry. PSYCH: Calm. LABORATORY DATA: WBC 11.77, hemoglobin is 10.9, hematocrit is 34.3, and platelet is 274. Chemistry; sodium 139, potassium 4.0, CO2 20, creatinine 0.81, and estimated GFR greater than 60. AST 45, ALT 16, and alkaline phosphate 122. TSH 0.494. IMPRESSION: 1. Influenza A, complicated with pneumonia. WBC improving. Blood cultures negative. Sputum culture shows gram-negative bacillus. Continue azithromycin, Flagyl, and Rocephin. Pulmonary is following. Speech therapist recommending MBS. 2. Atrial fibrillation with rapid ventricular response. Currently normal sinus rhythm. Cardiology on the case. Continue amiodarone and beta blockers. 3. Acute kidney injury. Now resolved. 4. Coronary artery disease with history of stents. Continue aspirin, Plavix, and statin. 5. History of cerebrovascular accident with left-sided weakness. Continue aspirin and Plavix. 6. Chronic Alicia use. Due to cerebrovascular accident. 7. Deep vein thrombosis prophylaxis. Continue with heparin subcutaneous. PLAN: MBS today. We will continue IV antibiotics and rule out aspiration. Eventually to SNF at [facility]. Dictated by NATHAN Lucia Maria Gching Obie Mchugh MD MY/MODL /[id number]
--- NOTE | 2019-09-06 13:06 | NUR ---
ST NOTE: MBS to be completed 09/07/19 if pt status appropriate. Handoff to JOHN Braun
[2019-09-06] MEDS: CEFTRIAXONE SOD 1 GM/NS 50 ML 50 ML IV SCH (13:20)
--- NOTE | 2019-09-06 13:35 | NUR ---
Patient c/o generalized pain. Cheeks are flushed. T 98.4 axillary. Notified Arlene Collins NP. See orders
--- NOTE | 2019-09-06 13:37 | NUR ---
Per ST and PCT Suzanne, patient states "I feel like if I am going to soon." Notified Arlene Collins NP. Arlene Mi NP aware MBS to be done tomorrow. See orders
[2019-09-06] MEDS ORDERED: KETOROLAC TROMETHAMINE 30 MG/ML VIAL IV PRN (13:45)
[2019-09-06] MEDS ORDERED: ACETAMINOPHEN 325 MG SUPP PR PRN (13:45)
--- NOTE | 2019-09-06 13:53 | NUR ---
Nutrition Intervention Note RD Recommendation(s) for Physician: -ADAT to regular per MD, texture per speech. -If pt fails MBS, please consider placing DHT if medically feasible: TF recommendation: Osmolite 1.2 at 10 ml/hr advance as tolerated to goal rate of 65 ml/hr with 30 ml of water flushed every 4 hours (1872 kcal, 87 gram protein) -IVF management and additional flushes per MD. Plan of Care: RD following, monitoring for tolerance and adequacy, ONS when pt is no longer NPO and medically feasible. Nutrition reason for involvement: Wound-stage II RD Assessment 09/06: 89 YOF admitted for influenza and UTI with PMH listed below. The pt was seen resting in bed. Pt reported that her appetite has been poor, she could not state any weight loss. Per EMR, the pt was 147 lbs in Mar suggesting no recent weight loss. Discussed pt in rounds, MBS is scheduled for tmrw, if she fails TF recs are provided above. Pt is NPO currently. Will continue to monitor. Principal Problems/Diagnoses: Influenza A, UTI PMH: 1. CAD, prior PCI. 2. Hysterectomy. 3. Tonsillectomy. 4. Left knee surgery. 5. Hypertension. 6. Hyperlipidemia. 7. 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 8. Easy fatigability and debility and the patient is using wheelchair, although she is able to get out of wheelchair and to do some activity. GI: Abd: soft; LBM: 09/05 Skin:stage II pressure ulcer on sacrum Labs: 09/06: Cl 109, CO2 20, AST 45, LDL cholesterol 46, HDL cholesterol 23 Meds: abx, probiotic, zofran Ht: 70 in Wt: 155 lbs BMI:22.2 kg/m^2 IBW: 150 lbs Malnutrition Evaluation 09/06 The patient does not meet criteria for a specified degree of malnutrition at this time. Will re-evaluate at follow-up as appropriate. Energy intake: -unable to evaluate Weight loss: -no weight loss recorded Fat loss: Moderate-temporal, skin folds Muscle loss: Mild-clavicle, temporal Nutrition Prescription (Diet Order): NPO Estimated Nutritional Needs: Calories:6898-8716 kcal/day (25-30 kcal/kg/day) Weight used : CBW (70 kg) Protein : 84-105protein/day (1.2-1.5 gram/kg/day ) Weight used: CBW Diet Adequacy: Not meeting calorie needs, Not meeting protein needs Diet Education Needs Assessment: Diet education not indicated, patient on temporary/transition diet. Nutrition Care Level: mod Nutrition Diagnosis: Inadequate energy intake related to medical condition as evidenced by the pt being NPO and need for MBS. Goal: Patient will meet 75-100% of estimated needs by follow up Progress: N/A Interventions: Cardiac, altered texture modified diet, Commercial beverage, Collaboration with other providers Monitoring/Evaluation: -Total energy intake, Total protein intake, Modified diet, Liquid supplement, Weight change Signed: Tere Linda RD, LD
[2019-09-06] MEDS: DEXTROSE 5%/0.9% SOD CHL 1,000 ML IV SCH (14:00)
--- NOTE | 2019-09-06 14:07 | NUR ---
WOUND CARE CONSULT FOR 89 YO FEMALE HX OF influenza,uti MUKESH 12 ON MODERATE PUP STATUS AND ALTERNATING PRESSURE MATTRESS LABS: WBC-11.22 HGB_ 10.9 GLUCOSE-78 SKIN ASSESSMENT COMPLETE PATIENT PRESENTS WITH LEFT BUTTOCKS RED AND DENUDED WITH OPEN STAGE 2 AREA TOTAL AREA 14CM X10CM X.1CM FAMILY OF PATIENT REFUSES USAGE OF FOAM DRESSING OR COVERING THEY FEEL IT WILL AGGRAVATE WOUND AREA FROM NEGATIVE PAST EXPERIENCE RECOMMENDATIONS: NURSING TO CONTINUE TO MAINTAIN MODERATE PUP STATUS AND INTERVENTIONS AND ALTERNATING PRESSURE MATTRESS NURSING TO CONTINUE TO ASSIST PATIENT OUT OF BED FOR MEALS AND MUCH TOLERATED NURSING TO CONTINUE TO ASSIST PATIENT NEEDED WITH MEALS AND NUTRITIONAL SUPPLEMENTS TO ENSURE PROPER REQUIREMENTS FOR HEALING NURSING TO CONTINUE TO OFFLOAD FEET AND HEELS NEEDED WITH PILLOW SUSPENSION WHEN IN BED NURSING TO MAINTAIN LEFT GLUTEAL AND SACRAL CLEAN AND DRY AND APPLY DAILY BARRIER PASTE Addendum: 09/06/19 at 1420 by Guy Virgen RN Amended: Links added.
[2019-09-06] MEDS: METOPROLOL TARTRATE 25 MG TAB PO SCH (15:11)
--- NOTE | 2019-09-06 19:25 | NUR ---
Report given to oncoming nurse of patient's status. Resting in bed. NO s/s of acute distress noted. Side rails upx2, call light within reach, bed alarm on.
--- NOTE | 2019-09-06 19:43 | NUR ---
ROUNDS DONE, RECEIVED REPORT FROM 7A NURSE, PATIENT CONTINUE RESTING, 02 PER NC REMAIN ON, CALL LIGHT IN REACH. WILL CONTINUE TO MONITOR.
[2019-09-06] MEDS: ATORVASTATIN 20 MG TAB PO SCH (21:00)
[2019-09-07] VITALS (9 sets, daily range): BP systolic 145–199; BP diastolic 73–88
[2019-09-07] MEDS: IPRATROPIUM BROMIDE 0.02% 2.5 ML NEB NEB SCH ×6 (03:45→23:31)
[2019-09-07] MEDS: METRONIDAZOLE 500MG/NS 100ML 100 ML IV SCH ×3 (06:02→21:26)
--- NOTE | 2019-09-07 06:03 | NUR ---
PATIENT REFUSED BATH, JOSE CARE GIVEN.
[2019-09-07] MEDS: ACETYLCYSTEINE 200 MG/ML 4ML VIAL INH SCH ×3 (06:45→19:28)
--- NOTE | 2019-09-07 07:19 | NUR ---
PATIENT RESTING IN BED REMAIN NPO FOR PROCEDURE, REPORT GIVEN TO ONCOMING NURSE.
[2019-09-07] MEDS: AZITHROMYCIN 500MG/NS 250 ML 250 ML IV SCH (08:00)
[2019-09-07] MEDS: ASPIRIN 81 MG CHEW TAB PO SCH (09:00)
[2019-09-07] MEDS: CLOPIDOGREL BISULFATE 75 MG TAB PO SCH (09:00)
[2019-09-07] MEDS: METOPROLOL TARTRATE 25 MG TAB PO SCH ×2 (09:00→17:00)
[2019-09-07] MEDS: AMIODARONE HCL 200 MG TAB PO SCH (09:00)
[2019-09-07] MEDS: OXYBUTYNIN CHLORIDE 5 MG TAB PO SCH (09:00)
[2019-09-07] MEDS: LACTOBACILLUS ACIDOPHILUS CAPSULE PO SCH ×2 (09:00→17:00)
--- NOTE | 2019-09-07 11:46 | NUR ---
Pulmonary Medicine DATE 09/07/2019 SUBJECTIVE Expectorating secretions intermittently per bedside swallow evaluation, recommended for MBS 2 L/min oxygen d5NS at 50/hr ivf REVIEW OF SYSTEMS: no bleed, no BRBPR PHYSICAL EXAMINATION: VITAL SIGNS: vital signs noted per the chart record. GENERAL: no acute distress. Alert and calm. HEENT: Normocephalic, atraumatic. NECK: Supple. Throat midline. LUNGS: Bilateral air entry with fwdz-tq-xrvfgprn rhonchi CARDIOVASCULAR: S1, S2. No murmurs, rubs, or gallops. ABDOMINAL: Soft, nontender. EXTREMITIES: No clubbing, no cyanosis. trace edema. INTEGUMENT: No rash, venous stasis changes to legs. NEUROLOGIC: Left-sided paralysis, but both feet are also weak and downgoing toes at rest. LABORATORY DATA: no new updates IMPRESSION AND PLAN: 1. Influenza A with pneumonia. 2. Possible community-acquired tracheobronchitis/pneumonia, superimposed. --insufficient cough 3. Debility/weakness. 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 Denies bulbar dysfunction, but there is active posterior pharyngeal numbness. 4. Hypertension. 5. Coronary artery disease, s/p stenting. 6. Hyperlipidemia. 7. Hypothyroidism by history. Speech therapy dysphagia evaluation, NPO awaiting evaluation --MBS today Cough medications PRN Antibiotics for additional bacterial pathogens. Encourage expectoration and continue Mucomyst. Hopefully working. Patient is expectorating slowly. Didnt tolerate Vest device. Cardiac issues / arrhythmia per designated Follow up closely. Thank you very much, Dr. Mchugh for this consult. Please call for questions.
[2019-09-07] MEDS: HEPARIN SOD (PORCINE) 5,000 UNIT/ML VIAL SC SCH ×2 (11:48→21:24)
--- NOTE | 2019-09-07 12:30 | NUR ---
MBS done at this time.
[2019-09-07] MEDS: DEXTROSE 5%/0.9% SOD CHL 1,000 ML IV SCH (14:00)
--- NOTE | 2019-09-07 17:43 | Progress Note ---
DATE: 09/07/2019 CONSULTANTS: 1. Dr. Mendoza with Pulmonary. 2. Dr. Rolon with Cardiology. 3. Dr. Sandoval with GI. SUBJECTIVE: The patient is seen resting in bed. Coughing and with crackling sounds. MBS was done this morning, she has failed so we will keep n.p.o. GI has been consulted. She denies any chest pain, abdominal pain, nausea, or vomiting. OBJECTIVE: VITAL SIGNS: Temperature 97.8, pulse is 90, respirations 19, blood pressure is 169/77, pulse ox 93% on 2 L of oxygen. GENERAL: Fatigue, generalized weakness. HEENT: Normocephalic, atraumatic. NECK: Supple. LUNGS: Crackles and wheezing throughout. CARDIOVASCULAR: Regular rate and rhythm. GI: Soft and nontender. : Alicia in place. NEUROLOGIC: Alert, awake, oriented x3. MUSCULOSKELETAL: Left-sided hemiparalysis. SKIN: Dry. PSYCH: Calm. IMPRESSION: 1. Influenza A complicated with pneumonia. WBC improving. Likely aspiration pneumonia. We will continue with antibiotics. Pulmonary is following. Speech therapy did MBS today, failed, thin liquid and regular diet. 2. Atrial fibrillation with rapid ventricular response. Currently normal sinus rhythm. Cardiology on the case. I will continue amiodarone and beta-josafat. Not an AC candidate. 3. Acute kidney injury, resolved. 4. Coronary artery disease with history of stent. Continue aspirin, Plavix, and statin. 5. History of cerebrovascular accident with left-sided weakness. We will continue aspirin and Plavix. 6. Dysphagia with aspiration. MBS failed. GI consulted for further evaluation. The patient refuses PEG tube, but may need EGD. 7. Chronic Alicia. Due to bed-bound status as a result of cerebrovascular accident. 8. Deep vein thrombosis prophylaxis. Continue heparin subcu. PLAN: Keep n.p.o. with light IV fluid hydration. GI has been consulted for further workup. Dictated by NATHAN Lucia Damaso Mchugh MD MY/MODL /[id number]
--- NOTE | 2019-09-07 19:45 | NUR ---
Dr. calvo here talking with pt and family member.
[2019-09-07] MEDS: HYDRALAZINE HCL 20 MG/ML VIAL IV PRN (20:04)
[2019-09-07] MEDS: CEFTRIAXONE SOD 1 GM/NS 50 ML 50 ML IV SCH (20:05)
--- NOTE | 2019-09-07 20:20 | NUR ---
report given to oncoming nurse. Walking rounds complete
--- NOTE | 2019-09-07 20:20 | NUR ---
ROUNDS DONE, PATIENT RESTING IN BED, NO COMPLAINTS VOICED. DR. BARRON VISITED AND TALKED WITH PATIENT AND HER DAUGHTER (ON THE PHONE) CONCERNING THE POSSIBLE PLACEMENT OF A G-TUBE AND HER RISK OF SURGERY, NO DISCUSSION WAS MADE, PATIENT REMAIN NPO. WILL CONTINUE TO MONITOR.
[2019-09-07] MEDS: ATORVASTATIN 20 MG TAB PO SCH (20:30)
[2019-09-08] VITALS (7 sets, daily range): BP systolic 119–190; BP diastolic 55–88
--- NOTE | 2019-09-08 01:10 | Consultation ---
DATE OF CONSULTATION: 09/07/2019 HISTORY OF PRESENT ILLNESS: An 89 years old who was admitted to the hospital initially because of some flu and also was found to have aspiration pneumonia. She had a modified barium swallow today and she failed. A GI consult was obtained for evaluation. I discussed with her and her daughter and at this point, they are not sure whether they want to have a PEG tube. PAST MEDICAL PROBLEM: Significant for history of hypertension, coronary artery disease, previous stent placement, history of CVA, hypothyroidism, hypercholesterolemia, status post cardiac stent, cholecystectomy, tonsillectomy. ALLERGIES: NONE. SOCIAL HISTORY: No alcohol use. CURRENT MEDICATIONS: 1. Flagyl. 2. Ipratropium. 3. . 4. Heparin subcu. 5. Azithromycin. 6. Ketorolac. 7. Ceftriaxone. 8. Hydralazine. 9. Metoprolol. 10. Amiodarone. 11. Plavix. 12. Lipitor. PHYSICAL EXAMINATION: GENERAL: Awake, lying in bed, appears to be stable and not in acute distress. VITAL SIGNS: Afebrile, currently with stable vital signs. HEAD, EYES, EARS, NOSE AND THROAT: Normocephalic, atraumatic. Sclerae are anicteric. NECK: Supple. HEART: Regular. LUNGS: Clear. ABDOMEN: Soft. There is no distention at this point and is nontender. EXTREMITIES: No clubbing. LABORATORY VALUES: As of yesterday, WBC of 11.7, hemoglobin of 10.9. IMPRESSION: 1. Oropharyngeal dysphagia and family is not sure about PEG at this point. 2. Pneumonia. 3. Influenza and anemia. RECOMMENDATION: Continue current care at this point. We will proceed with EGD with PEG when the patient and family agree for it. Familia Sandoval MD DHD/MODL /[id number] cc: MD Dr. Vane Ventura
[2019-09-08] MEDS: IPRATROPIUM BROMIDE 0.02% 2.5 ML NEB NEB SCH ×6 (03:48→23:20)
[2019-09-08] MEDS: DEXTROSE 5%/0.9% SOD CHL 1,000 ML IV SCH (05:45)
[2019-09-08] MEDS: METRONIDAZOLE 500MG/NS 100ML 100 ML IV SCH (05:52)
--- NOTE | 2019-09-08 07:06 | NUR ---
REPORT GIVEN TO AM NURSE, PATIENT RESTING IN BED WATCHING TV, NO DISTRESS NOTED.
[2019-09-08] MEDS: ACETYLCYSTEINE 200 MG/ML 4ML VIAL INH SCH ×3 (07:30→19:47)
[2019-09-08] MEDS: AZITHROMYCIN 500MG/NS 250 ML 250 ML IV SCH (08:28)
[2019-09-08] MEDS: HYDRALAZINE HCL 20 MG/ML VIAL IV PRN ×2 (08:33→19:46)
[2019-09-08] MEDS: OXYBUTYNIN CHLORIDE 5 MG TAB PO SCH (09:00)
[2019-09-08] MEDS: METOPROLOL TARTRATE 25 MG TAB PO SCH ×2 (09:00→17:00)
[2019-09-08] MEDS: AMIODARONE HCL 200 MG TAB PO SCH (09:00)
[2019-09-08] MEDS: LACTOBACILLUS ACIDOPHILUS CAPSULE PO SCH ×2 (09:00→17:00)
[2019-09-08] MEDS: CLOPIDOGREL BISULFATE 75 MG TAB PO SCH (09:00)
--- NOTE | 2019-09-08 09:19 | Diagnostic Imaging Report ---
EXAM: MODIFIED BA. SWALLOW DATE: 09/07/2019 12:00 AM Fluoroscopy Time: 1.4 min. Reference Air Kerma (Ka, r): 4.96 mGy. COMPARISON: None IMPRESSION: Modified barium swallow was performed by the speech pathologist. The radiologist was not present for the examination. Please refer to speech pathology notes for further details. Signed by: Dr. Rodolfo Velez MD on 09/08/2019 9:17 AM
--- NOTE | 2019-09-08 11:05 | NUR ---
REQUEST RECEIVED FOR CM TO SPEAK W THE PT'S DTR. AMAIRANI MET W THE DTR / SERGIO Macias TO ADDRESS CONCERNS. DTR STATES SHE WAS CONCERNED ABOUT THE MD WHO SPOKE W HER MOTHER THIS AM. INQUIRED ABOUT A 2ND OPINION. STATES THE MOTHER TOLD HER HE SAID SHE WOULD . INFORMED THE DTR WE DISCUSSED HER MOTHER IN MDR THIS AM. AMAIRANI, SHANTELL / BEDSIDE NURSE AND DTR DISCUSSED CONVERSATION PT HAD W BEATRICE; SHANTELL WAS PRESENT. THE DTR STATES SHE HAS MPOA AND WOULD HAVE PREFERRED TO BE PRESENT WHEN DISCUSSING PROCEDURES. SHANTELL INFORMED HER THE PT TOLD DR. BARRON SHE WAS COMPETENT TO MAKE HER OWN DECISIONS. INFORMED HER DR. BARRON DISCUSSED RISKS W THE PT OF DILATION AND PEG NEEDS. THE DTR STATES THE MOTHER ONLY HEARD SHE WOULD NOT BE ABLE TO EAT. SHANTELL EXPLAINED WHAT WAS DISCUSSED. THE DTR VERBALIZED UNDERSTANDING. STATES SHE WOULD BE OK W DILATION AND PEG PLACEMENT TO PREVENT HER MOM FROM HAVING TO BE SEDATED TWICE. SHANTELL WILL PAGE DR. BARRON TO SEE WHEN HE WILL BE ABLE TO DO THE PT'S PROCEDURE. DC PLAN IS FOR PT TO GO TO [facility].
[2019-09-08] MEDS ORDERED: DIPHENHYDRAMINE HCL INJ 50 MG/ML VIAL IV ONE (11:30)
--- NOTE | 2019-09-08 12:02 | NUR ---
Pulmonary Medicine DATE 09/08/2019 SUBJECTIVE VEST on standby, not liked by patient IVF d5 ns at 50/hr MBS with aspiration of all attempts liquids (thin, nectar thick on report) and pureed patient cough mildly better REVIEW OF SYSTEMS: no bleed, no BRBPR PHYSICAL EXAMINATION: VITAL SIGNS: vital signs noted per the chart record. GENERAL: no acute distress. Alert and calm. HEENT: Normocephalic, atraumatic. NECK: Supple. Throat midline. LUNGS: Bilateral air entry with [id number]-bhdekhuz rhonchi CARDIOVASCULAR: S1, S2. No murmurs, rubs, or gallops. ABDOMINAL: Soft, nontender. EXTREMITIES: No clubbing, no cyanosis. trace edema. INTEGUMENT: No rash, venous stasis changes to legs. NEUROLOGIC: Left-sided paralysis, but both feet are also weak and downgoing toes at rest. LABORATORY DATA: k 4.0, cr 0.81, hct 11.7, hct 34, plt 274 IMPRESSION AND PLAN: 1. Influenza A with pneumonia. 2. Possible community-acquired tracheobronchitis/pneumonia, superimposed. --insufficient cough 3. Debility/weakness. 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 Denies bulbar dysfunction, but there is active posterior pharyngeal numbness. 4. Hypertension. 5. Coronary artery disease, s/p stenting. 6. Hyperlipidemia. 7. Hypothyroidism by history. Speech therapy dysphagia evaluation appreciated, NPO --GI recommended G tube. family is considering options, not keen on G tube Cough medications PRN Antibiotics for additional bacterial pathogens. Encourage expectoration and continue Mucomyst. Hopefully working. Patient is expectorating slowly. Cardiac issues / arrhythmia per designated Follow up closely. Thank you very much, Dr. Mchugh for this consult. Please call for questions.
[2019-09-08] MEDS ORDERED: FUROSEMIDE INJ 10 MG/ML 4 ML VIAL IV ONE (17:15)
[2019-09-08] MEDS ORDERED: METOPROLOL TARTRATE INJ 1 MG/ML VIAL IV PRN (17:45)
[2019-09-08] MEDS ORDERED: AMPICILLIN SOD/SULBACTAM 1.5GM 50 ML IV SCH (18:00)
--- NOTE | 2019-09-08 19:43 | Progress Note ---
DATE: 09/08/2019 CONSULTANTS: 1. Dr. Mendoza. 2. Dr. Rolon with Cardiology. 3. Dr. Sandoval with GI. CHIEF COMPLAINT: Shortness of breath, generalized weakness, and fever. SUBJECTIVE: The patient is resting in bed, noted with generalized edema. Remains n.p.o. due to aspiration on MBS. The patient and family continued to refuse PEG tube placement. She denies any chest pain, abdominal pain, nausea, or vomiting. OBJECTIVE: VITAL SIGNS: Temperature 97.1, pulse is 96, respirations 20, blood pressure 160/70, and pulse ox is 96% on 2 L of oxygen. GENERAL: Fatigue and generalized weakness. HEENT: Normocephalic and atraumatic. NECK: Supple. LUNGS: Crackles and wheezing throughout. CARDIOVASCULAR: Regular rate and rhythm. GI: Soft and nontender. GENITOURINARY: Chronic Alicia due to CVA. NEUROLOGIC: Alert, awake, and oriented x3. Left-sided weakness. MUSCULOSKELETAL: Left-sided hemiparalysis. SKIN: Dry. PSYCH: Calm. ASSESSMENT: 1. Influenza A complicated with pneumonia. Likely aspiration pneumonia. Sputum was positive for extended spectrum beta-lactamase. We will change antibiotics to Merrem. Pulmonary is following. Keep n.p.o. to prevent any further aspiration. 2. Atrial fibrillation with rapid ventricular response. Now normal sinus rhythm. Cardiology on the case. We will continue with amiodarone and beta-josafat. Not an AC candidate. 3. Acute kidney injury. Now resolved. 4. Coronary artery disease with history of stents. Medication held due to n.p.o. status. 5. History of cerebrovascular accident with left-sided paralysis. We will hold aspirin and Plavix for now. 6. Dysphagia with aspiration. Failed MBS. GI has been consulted for further evaluation. May consider EGD for further evaluation. Continues to refuse PEG tube placement. 7. Generalized edema. Echo with EF of 51% with normal left ventricle function. BNP was 873. We will give Lasix IV x1. 8. Deep vein thrombosis prophylaxis. Continue heparin subcu. PLAN: Keep n.p.o. with light IV fluid hydration. Continue with neb treatments, GI. Plan EGD once cleared by Cardiology and okay with family. Dictated by Arlene Carlton, NATHAN Damaso Mchugh MD MY/MODL /[id number] Seen and examined on 09/08/19, discussed with Dr. Sandoval who spoke to the patient and daughter again, will proceed with PEG. Agree with the findings and plan as documented by NATHAN Carlton. DAMIR
[2019-09-08] MEDS: MEROPENEM 500MG/ NS 50ML 50 ML IV SCH (19:45)
--- NOTE | 2019-09-08 19:45 | NUR ---
Report given to oncoming nurse, walking rounds complete.
--- NOTE | 2019-09-08 20:00 | NUR ---
Received change of shift report from AM nurse. Walking rounds completed.
--- NOTE | 2019-09-08 20:13 | NUR ---
Dr Packer on the floor to see patient. S/W patient daughter Ms Niurka Stoddard to get ok for PICC line, esophagas dilation and peg tube. Consents completed on phone with 2 nurses conformation for all procedures listed above.
[2019-09-08] MEDS: ATORVASTATIN 20 MG TAB PO SCH (21:00)
[2019-09-09] VITALS (9 sets, daily range): BP systolic 141–189; BP diastolic 68–88
--- NOTE | 2019-09-09 01:09 | NUR ---
Patient c/o pain generalized. Given pain meds as ordered by MD. Mouth care done. Continue monitor. Repositioned in bed.
[2019-09-09] MEDS: IPRATROPIUM BROMIDE 0.02% 2.5 ML NEB NEB SCH ×6 (01:20→21:15)
[2019-09-09] MEDS: DEXTROSE 5%/0.9% SOD CHL 1,000 ML IV SCH ×2 (01:45→21:45)
[2019-09-09] MEDS: MEROPENEM 500MG/ NS 50ML 50 ML IV SCH ×2 (05:09)
[2019-09-09 06:14] LABS: BASOPHILS % 0.3 % (0.0-1.0); EOSINOPHILS # (AUTO) 0.1 (0.0-0.4); EOSINOPHILS % 1.1 % (0.0-6.0); HEMATOCRIT 30.6 % (34.2-44.1); HEMOGLOBIN 10.1 g/dL (12.0-16.0); LYMPHOCYTES # (AUTO) 0.9 (1.0-3.2); LYMPHOCYTES % 13.6 % (18.0-39.1); MEAN CORPUSCULAR HEMOGLOBIN 29.4 pg (28-32); MONOCYTES # (AUTO) 0.6 (0.2-0.8); MONOCYTES % 9.4 % (4.4-11.3); NEUTROPHILS # (AUTO) 4.8 (2.1-6.9); NEUTROPHILS % 75.1 % (38.7-80.0); PLATELET COUNT 329 x10e3/uL (140-360); RED BLOOD COUNT 3.44 x10e6/uL (3.6-5.1); RED CELL DISTRIBUTION WIDTH 16.2 % (11.7-14.4)
[2019-09-09 06:38] LABS: ALANINE AMINOTRANSFERASE 14 IU/L (0-55); ALBUMIN 2.2 g/dL (3.5-5.0); ALBUMIN/GLOBULIN RATIO 0.6 (0.8-2.0); ALKALINE PHOSPHATASE 62 IU/L (40-150); ANION GAP 10.3 mmol/L (8-16); BLOOD UREA NITROGEN 14 mg/dL (7-26); BUN/CREATININE RATIO 19 (6-25); CALCIUM 8.4 mg/dL (8.4-10.2); CARBON DIOXIDE 21 mmol/L (22-29); CHLORIDE 118 mmol/L (98-107); CREATININE, SERUM 0.73 mg/dL (0.57-1.11); EST GLOMERULAR FILTRATION RATE > 60 ML/MIN (60-); GLUCOSE 123 mg/dL (74-118); POTASSIUM 3.3 mmol/L (3.5-5.1); SODIUM 146 mmol/L (136-145)
[2019-09-09] MEDS: ACETYLCYSTEINE 200 MG/ML 4ML VIAL INH SCH ×2 (07:05→21:15)
[2019-09-09 07:14] LABS: INR 1.25; PROTHROMBIN TIME 16.5 seconds (11.9-14.5)
[2019-09-09] MEDS: HYDRALAZINE HCL 20 MG/ML VIAL IV PRN (08:39)
[2019-09-09] MEDS: OXYBUTYNIN CHLORIDE 5 MG TAB PO SCH (09:00)
[2019-09-09] MEDS: LACTOBACILLUS ACIDOPHILUS CAPSULE PO SCH ×2 (09:00→17:00)
[2019-09-09] MEDS: METOPROLOL TARTRATE 25 MG TAB PO SCH ×2 (09:00→17:00)
[2019-09-09] MEDS: AMIODARONE HCL 200 MG TAB PO SCH (09:00)
--- NOTE | 2019-09-09 09:10 | NUR ---
ST NOTE: Pt is NPO for EGD/peg tube placement, ST to follow up
[2019-09-09] MEDS ORDERED: DIPHENHYDRAMINE HCL INJ 50 MG/ML VIAL IV PRN (10:45)
[2019-09-09] MEDS ORDERED: POTASSIUM CHLORIDE 10MEQ/100ML 100 ML IV ONE ×4 (11:45→20:00)
--- NOTE | 2019-09-09 12:00 | Progress Note ---
DATE: 09/09/2019 CONSULTANTS: 1. Dr. Mendoza with Pulmonary. 2. Dr. Rolon with Cardiology. 3. Dr. Sandoval with GI. CHIEF COMPLAINT: Shortness of breath, generalized weakness, and fever. SUBJECTIVE: The patient is n.p.o. for EGD with PEG tube placement. She continues to be edematous. Complaining of redness and mouth pain. She denies any chest pain, shortness of breath, nausea, or vomiting. PHYSICAL EXAMINATION: VITAL SIGNS: Temperature 97.2, pulse is 91, respirations 20, blood pressure is 189/86, and pulse ox is 98% on 2 L of oxygen. GENERAL: Fatigue and generalized edema. HEENT: Normocephalic and atraumatic. NECK: Supple. LUNGS: Crackles and wheezing. CARDIOVASCULAR: Regular rate and rhythm. GI: Soft and nontender. : Chronic Alicia. NEUROLOGIC: Alert, awake, and oriented x3. Left-sided weakness. MUSCULOSKELETAL: Left-sided hemiparalysis. SKIN: Dry and red. PSYCH: Calm. LABORATORY DATA: WBC 6.4, hemoglobin 10.1, hematocrit 30.6, and platelet 329. Sodium 146, potassium 3.3, BUN is 14, creatinine is 0.73, and glucose 123. IMPRESSION: 1. Influenza A, complicated with pneumonia. Likely aspiration pneumonia. Sputum is positive for ESBL. Antibiotics changed to Merrem. Pulmonary following. 2. Atrial fibrillation with rapid ventricular response. Now normal sinus. Cardiology on the case. We will continue on amiodarone and beta-josafat. Not an KATI candidate. 3. Acute kidney injury. Now resolved. 4. Coronary artery disease with history of stents. Medication held due to n.p.o. status. 5. History of cerebrovascular accident with left-sided paralysis. We will hold aspirin and Plavix for now. 6. Dysphagia with aspiration. Failed MBS. GI has been consulted for EGD and PEG placement today. 7. Generalized edema. Echo done with EF of 51%. We will give Lasix x1 today. 8. Hypokalemia. Replace. 9. Deep vein thrombosis prophylaxis. Continue heparin subcutaneous. PLAN: We will continue to keep n.p.o. for EGD with PEG tube placement. She is cleared by Cardiology for procedure. Dictated by NATHAN Lucia Yiching Obie Mchugh MD MY/MODL /[id number] Seen and examined, updated daughter at the bedside, will stop hydralazine iv prn since this is probably what's causing her facial swelling, discussed with Dr. Teixeira as well. Agree with the findings and plan as documented by NATHAN Carlton. DAMIR
[2019-09-09] MEDS ORDERED: FUROSEMIDE INJ 10 MG/ML 4 ML VIAL IV ONE (12:15)
--- NOTE | 2019-09-09 12:30 | NUR ---
pt off unit for egd and peg placement.
--- NOTE | 2019-09-09 12:41 | NUR ---
Pulmonary Medicine DATE 09/09/2019 SUBJECTIVE 2 L/min oxygen nasal cannula fernandes in still not eating per speech REVIEW OF SYSTEMS: no bleed, no BRBPR PHYSICAL EXAMINATION: VITAL SIGNS: vital signs noted per the chart record. GENERAL: no acute distress. Alert , calm. HEENT: Normocephalic, atraumatic. NECK: Supple. Throat midline. LUNGS: Bilateral air entry with rjix-ih-btcrltol rhonchi CARDIOVASCULAR: S1, S2. No murmurs, rubs, or gallops. ABDOMINAL: Soft, nontender. EXTREMITIES: No clubbing, no cyanosis. trace edema. INTEGUMENT: No rash, venous stasis changes to legs. NEUROLOGIC: Left-sided paralysis, but both feet are also weak and downgoing toes at rest. LABORATORY DATA: k 4.0, cr 0.81, hct 11.7, hct 34, plt 274 IMPRESSION AND PLAN: 1. Influenza A with pneumonia. 2. Possible community-acquired tracheobronchitis/pneumonia, superimposed. --insufficient cough 3. Debility/weakness. 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 Denies bulbar dysfunction, but there is active posterior pharyngeal numbness. 4. Hypertension. 5. Coronary artery disease, s/p stenting. 6. Hyperlipidemia. 7. Hypothyroidism by history. Speech therapy dysphagia evaluation appreciated, NPO --GI recommended G tube for today tentative with or without esophageal dilation cough medications PRN Antibiotics for additional bacterial pathogens. Encourage expectoration and continue Mucomyst. Patient is expectorating slowly. Cardiac issues / arrhythmia per designated Follow up closely. wagner conner replete Thank you very much, Dr. Mchugh for this consult. Please call for questions.
--- NOTE | 2019-09-09 14:30 | NUR ---
pt has no venous access for picc line placement at this time.
--- NOTE | 2019-09-09 15:00 | NUR ---
consent for cvc put in at this time.
--- NOTE | 2019-09-09 16:55 | NUR ---
Discontinuing skilled PT services at this time since patient is unable to participate. Please write new orders when appropriate. thank you. Addendum: 09/09/19 at 1657 by Markos bingham PT Amended: Links added.
--- NOTE | 2019-09-09 17:30 | NUR ---
pt off unit for central line placement,
--- NOTE | 2019-09-09 18:30 | NUR ---
pt return to unit, no distress noted, call light in reach.
[2019-09-09] MEDS ORDERED: PROPOFOL IV EMULSION 10 MG/ML 20 ML VIAL ONE (19:00)
[2019-09-09] MEDS ORDERED: LIDOCAINE HCL 2% LOCAL INJ 5 ML SDV VIAL INJ ONE (19:00)
--- NOTE | 2019-09-09 19:43 | NUR ---
Received change of shift report from AM nurse. Walking rounds completed.
--- NOTE | 2019-09-09 19:46 | NUR ---
walking rounds complete, pt stable at this time.
[2019-09-09] MEDS: ATORVASTATIN 20 MG TAB PO SCH (21:00)
--- NOTE | 2019-09-09 23:15 | NUR ---
Patient in bed. Mouth care done. Patient turned q 2hours and prn when patient allows. Hands elevated on pillow to help with edema to hands
--- NOTE | 2019-09-09 23:28 | Consultation ---
DATE OF CONSULTATION: REASON FOR CONSULTATION: 1. Fever. 2. Pneumonia. 3. Drug reaction, recommendation antibiotic. 4. Influenza. HISTORY OF PRESENT ILLNESS: This patient who is an 89-year-old white female, who has history of hypertension, hyperlipidemia, coronary artery disease, a stroke with left-sided paralysis, hypothyroidism, who comes into the emergency room with generalized weakness, fever, cough, and body aches. The patient was admitted. The patient when she first came she was sick for 3 days. At that time, there was no nausea, no vomiting, no diarrhea. The patient had no syncopal episode, but she did have some shortness of breath. There was no hemoptysis. In the emergency room, she was found to have influenza A. her chest x-ray was unremarkable. The patient was admitted. PAST MEDICAL HISTORY: The patient has a past medical history of hypertension, hypercholesteremia, coronary artery disease status post stent placement, stroke with left-sided paralysis, hypothyroidism. PAST SURGICAL HISTORY: Cardiac stent placement, hysterectomy, tonsillectomy, left knee arthroplasty. ALLERGIES: NKA. SOCIAL HISTORY: There is no smoking, drug abuse, or alcohol abuse. FAMILY HISTORY: Her father and mother had cancer. The patient was admitted as mentioned above with diagnosis of influenza A, possible UTI, hypertension, hypercholesteremia, coronary artery disease, hypothyroidism, leukocytosis. The patient was admitted on August 31. She has been on antibiotics since then. Her sputum cultures back on September 03, showed mo rugosa with E. coli ESBL and Gram stain showed less than 25 squamous epithelial cell with 10 to 25 WBC, moderate gram-positive cocci. She had a chest x-ray on the , which showed inferior right upper lobe atelectasis versus pneumonia. MEDICATION LIST: She is currently on Benadryl, Atrovent, Toradol, Mucinex. The patient received a dose of meropenem. She was on Zosyn when she first came. IMPRESSION: The patient when she first came she was started on Zosyn. However, yesterday, she was noted to have some upper lip swelling, some swelling in the face. The patient's meropenem was discontinued, then she was given Benadryl. Apparently, she is okay now where there are no complaints. The patient is currently alert, oriented, follows commands. She denies any shortness of breath or cough at the present time. Her chart reviewed. Discussed with Internal Medicine. Discussed with medical team. IMPRESSION: 1. Pneumonia aspiration, probably I think clinically stable. She received antibiotic more than 10 days. Clinically has no complaint. I would suggest to discontinue antibiotic. 2. Influenza A, treated with 7 days of Tamiflu. 3. Probably aspiration. The patient has stroke. 4. Swelling in the lip. I do not think it is allergic reaction. It could be side effect or could be drug related. Clinically now when I examine, I do not see anything. It could be hydralazine related. Discussed with internal Medicine. 5. History of hypertension. 6. History of coronary artery disease. We will follow. MD DEVON De/JUANPABLO /[id number]
[2019-09-10 04:00] VITALS: BP 161/76
[2019-09-10] MEDS: IPRATROPIUM BROMIDE 0.02% 2.5 ML NEB NEB SCH ×3 (04:45→11:00)
[2019-09-10 07:22] VITALS: BP 147/92
[2019-09-10 07:30] VITALS: BP 147/92
--- NOTE | 2019-09-10 07:30 | NUR ---
PATIENT IN BED RESTING WITH NO S/S OF DISTRESS. DENIED PAIN AT THIS TIME. NEW PEG TUBE INTACT TO ABDOMEN, WALTER WITH CLEAR YELLOW URINE. BED IN LOWER POSITION AND LOCKED, CALL LIGHT AT REACH.
[2019-09-10] MEDS: ACETYLCYSTEINE 200 MG/ML 4ML VIAL INH SCH (07:38)
--- NOTE | 2019-09-10 10:01 | NUR ---
SPOKE WITH DR BARRON REGARDING THE PEG TUBE USE. HE STATED THAT IT WAS OK TO BE USED.
--- NOTE | 2019-09-10 10:31 | NUR ---
Pulmonary Medicine DATE 09/10/2019 SUBJECTIVE no resp distress patient feeling slightly better PEG done patient recovered without complication REVIEW OF SYSTEMS: no bleed, no BRBPR PHYSICAL EXAMINATION: VITAL SIGNS: vital signs noted per the chart record. GENERAL: no acute distress. Alert , calm. HEENT: Normocephalic, atraumatic. NECK: Supple. Throat midline. LUNGS: Bilateral air entry with [id number] rhonchi CARDIOVASCULAR: S1, S2. No murmurs, rubs, or gallops. ABDOMINAL: Soft, nontender. EXTREMITIES: No clubbing, no cyanosis. trace edema. INTEGUMENT: No rash, venous stasis changes to legs. NEUROLOGIC: Left-sided paralysis, but both feet are also weak and downgoing toes at rest. LABORATORY DATA: k 3.3, cr 0.73, wbc 6.4, hct 31, plt 329 IMPRESSION AND PLAN: 1. Influenza A with pneumonia. 2. Possible community-acquired tracheobronchitis/pneumonia, superimposed. --insufficient cough 3. Debility/weakness. 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 Denies bulbar dysfunction, but there is active posterior pharyngeal numbness. 4. Hypertension. 5. Coronary artery disease, s/p stenting. 6. Hyperlipidemia. 7. Hypothyroidism by history. PEG placed. Start tube feeds when cleared by GI Cough medications PRN Antibiotics for additional bacterial pathogens given, now off Encourage expectoration, additional Mucomyst. Cardiac issues / arrhythmia per designated Follow up closely. Thank you very much, Dr. Mchugh for this consult. Please call for questions.
[2019-09-10] MEDS: OXYBUTYNIN CHLORIDE 5 MG TAB PO SCH (10:58)
[2019-09-10] MEDS: AMIODARONE HCL 200 MG TAB PO SCH (10:58)
[2019-09-10] MEDS: METOPROLOL TARTRATE 25 MG TAB PO SCH (10:58)
--- NOTE | 2019-09-10 11:04 | NUR ---
AM MEDS GIVEN VIA PEG TUBE. PATIENT REPOSITIONED IN BED. CALL LIGHT AT REACH.
[2019-09-10 11:19] VITALS: BP 170/87
--- NOTE | 2019-09-10 12:27 | Progress Note ---
DATE: 09/10/2019 CONSULTANTS: 1. Dr. Mendoza with Pulmonary. 2. Dr. Rolon with Cardiology. 3. Dr. Sandoval with GI. 4. Dr. Teixeira with ID. CHIEF COMPLAINT: Shortness breath, generalized weakness and fever. SUBJECTIVE: The patient is in bed with no acute distress, status post EGD with PEG tube placement. She is less edematous, no redness or swelling of the face noted. She denies any chest pain, shortness of breath, nausea, or vomiting. improving. PHYSICAL EXAMINATION: VITAL SIGNS: Temperature 95.7, pulse is 85, respirations 19, blood pressure 147/92, pulse ox is 97% on 2 L of oxygen. GENERAL: Fatigue. HEENT: Normocephalic, atraumatic. NECK: Supple. LUNGS: Decreased breath sounds and wheezing. CARDIOVASCULAR: Regular rate and rhythm. GI: Soft and nontender. : Chronic Alicia use. NEUROLOGIC: Alert, awake, and oriented x3 with left-sided paralysis. MUSCULOSKELETAL: Left side paralysis. Edema on the lower extremities. SKIN: Dry. PSYCH: Calm. IMPRESSION: 1. Influenza A, complicated due to aspiration pneumonia. Sputum is positive for extended-spectrum beta-lactamases. Pulmonary and Infectious Disease are following. We will monitor on antibiotics. 2. Atrial fibrillation with rapid ventricular response. Currently sinus rhythm. Cardiology on the case. We will continue on amiodarone and beta-blockers. Not an anticoagulation candidate. 3. Acute kidney injury, resolved. 4. History of coronary artery disease with stents. We will resume home medications, Plavix. 5. History of cerebrovascular accident with left-sided paralysis. We will continue aspirin and Plavix. 6. Dysphagia with aspiration. Failed modified barium swallow. GI consulted and status post EGD with PEG tube placement. We will start tube feeding today for nutrition recommendations. 7. Generalized edema. Echo with ejection fraction of 51%. We will continue with low dose of Lasix. 8. Hypokalemia. Replaced. 9. Swelling of the lip, likely due to hydralazine. Discontinued hydralazine. Today, swelling resolved. 10. Deep vein thrombosis prophylaxis. Continue heparin subcu. PLAN: Keep her n.p.o., start tube feeding. We will plan on detention placement. Dictated by NATHAN Lucia Maria Gching Obie Mchugh MD MY/MODL /[id number] Seen and examined, updated daughter at the bedside, dc to snf today. Agree with the findings and plan as documented by NATHAN Carlton. DAMIR
[2019-09-10] MEDS ORDERED: IPRATROPIUM BROMIDE 0.02% 2.5 ML NEB NEB PRN (12:30)
[2019-09-10] MEDS ORDERED: NEOMYCIN/POLYMYX/HYDROC (OTIC) 10 ML BTL OT SCH (15:00)
[2019-09-10 15:07] VITALS: BP 172/84
--- NOTE | 2019-09-10 15:16 | NUR ---
PATIENT IS ABOUT TO BE TRANSFERRED TO SNF. REPORT GIVEN TO RECEIVING NURSE. PATIENT'S DAUGHTER AT BED SIDE AT THIS TIME AND IS AWARE OF TRANSFER.
--- NOTE | 2019-09-10 15:24 | NUR ---
LEFT IJ REMOVED WITH TIP INTACT, PRESSURE APPLIED FOR 5 MINUTES. DRESSING DRY AND INTACT.
[2019-09-10] MEDS ORDERED: CIPROFLOXACIN-DEXAMETHASONE (OTIC) 7.5 ML BOTTLE OT SCH (17:00)
--- NOTE | 2019-09-10 17:00 | NUR ---
PATIENT LEFT UNIT ON STRETCHER PER AMBULANCE IN STABLE CONDITION. DAUGHTER NOTIFIED REQUESTED.
--- NOTE | 2019-09-10 17:56 | NUR ---
Nutrition Intervention Note RD Recommendation(s) for Physician: -Recommend to continue Jevity 1.2 and increase goal rate to 65 mL/hr. Continue water flush of 100 mL q 4hrs or water flush per MD. (provides 1872 kcal, 87 g protein, and 1859 mL water) Plan of Care: RD following, monitoring for tolerance and adequacy Nutrition reason for involvement: follow up RD Assessment 09/10: Follow up. Pt received a PEG tube yesterday and pt was started on tube feedings (Jevity 1.2 @ 20 mL/hr). RN reports pt is tolerating tube feeding at this time. Per nursing note, pt is going to be transferred to a SNF today. 09/06: 89 YOF admitted for influenza and UTI with PMH listed below. The pt was seen resting in bed. Pt reported that her appetite has been poor, she could not state any weight loss. Per EMR, the pt was 147 lbs in Mar suggesting no recent weight loss. Discussed pt in rounds, MBS is scheduled for tmrw, if she fails TF recs are provided above. Pt is NPO currently. Will continue to monitor. Principal Problems/Diagnoses: Influenza A, UTI PMH: 1. CAD, prior PCI. 2. Hysterectomy. 3. Tonsillectomy. 4. Left knee surgery. 5. Hypertension. 6. Hyperlipidemia. 7. 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 8. Easy fatigability and debility and the patient is using wheelchair, although she is able to get out of wheelchair and to do some activity. GI: Abd: soft, nontender abdomen; LBM: 09/05 Skin: stage II pressure ulcer on sacrum Labs: 09/10: Na 146, K 3.3, Glu 123 09/06: Cl 109, CO2 20, AST 45, LDL cholesterol 46, HDL cholesterol 23 Meds: metroprolol, Lipitor Ht: 70 in Wt: 155 lbs BMI:22.2 kg/m^2 IBW: 150 lbs Malnutrition Evaluation 09/06 The patient does not meet criteria for a specified degree of malnutrition at this time. Will re-evaluate at follow-up as appropriate. Energy intake: -unable to evaluate Weight loss: -no weight loss recorded Fat loss: Moderate-temporal, skin folds Muscle loss: Mild-clavicle, temporal Nutrition Prescription (Diet Order): Jevity 1.2 @ 20 mL/hr Estimated Nutritional Needs: Calories:1132-7207 kcal/day (25-30 kcal/kg/day) Weight used : CBW (70 kg) Protein : 84-105 g protein/day (1.2-1.5 gram/kg/day ) Weight used: CBW Diet Adequacy: Not meeting calorie needs, Not meeting protein needs Diet Education Needs Assessment: Diet education not indicated, patient on temporary/transition diet. Nutrition Care Level: moderate Nutrition Diagnosis: Swallowing difficulty related to pharyngeal dysphagia as evidenced by need for enteral nutrition Goal: Patient will meet 75-100% of estimated needs by follow up Progress: Tube feeding was started today Interventions: TF - Composition, Rate, Route, Collaboration with other providers Monitoring/Evaluation: -Total energy intake, Total protein intake, Formula/Solution, IVF , Weight change Signed: Tigits Cedeño RD, LD
--- NOTE | 2019-09-14 15:14 | Diagnostic Imaging Report ---
Exam: Central insertion Clinical History: Need for vascular access Consent: Benefits and risks were explained to the patient who gave consent to the procedure. Fluoro Time: 1.3 Minutes Total Images: 1 Procedure: Sterile barrier technique was followed including cap, mask, sterile gown, sterile gloves, sterile sheet, hand hygiene and 2% chlorhexidine for cutaneous antisepsis. The left chest and neck were prepped and draped in usual sterile fashion. 2% lidocaine was used as local anesthetic. Under ultrasound guidance, the left internal jugular vein, which was patent, was accessed. A hard copy of the image was obtained. Under fluoroscopic guidance, a triple-lumen central line was advanced to the cavoatrial junction. All 3 lm flushed and aspirated easily. The catheter was secured using 2-0 Prolene. Hemostasis was achieved. The patient tolerated the procedure well without adverse reactions. She left the department in stable condition. Complication: None immediate Impression: 1. Left internal jugular central line insertion as described. Signed by: Dr. Familia Lilly MD on 09/14/2019 3:11 PM
--- NOTE | 2019-10-28 16:57 | Discharge Summary ---
PRIMARY CARE DOCTOR: Dr. Cifuentes. FINAL DIAGNOSIS: Influenza A pneumonia complicated by extended-spectrum beta-lactamases Escherichia coli pneumonia. SECONDARY DIAGNOSES: 1. Atrial fibrillation with rapid ventricular response, now sinus. 2. Acute kidney injury, resolved. 3. History of coronary artery disease with stents. 4. Old stroke with residual left-sided weakness. 5. Dysphagia with aspiration. CONSULTANTS: 1. Dr. Mendoza, Pulmonary. 2. Dr. Rolon, Cardiology. 3. Dr. Sandoval, GI. PROCEDURES/STUDIES PERFORMED: 1. Status post PEG placement. 2. Chest CT. HISTORY: Per [facility]. HOSPITAL COURSE: The patient underwent extensive treatment with IV antibiotics and Tamiflu. Very slowly, she improved. Given dysphagia, the patient underwent PEG placement. With amiodarone and beta-josafat, finally her atrial fibrillation with rapid ventricular response got better. The patient is not an anticoagulation candidate per Cardiology. The patient was seen and examined today, was discharged to group home facility. CONDITION ON DISCHARGE: Improved. DISCHARGE MEDICATIONS: Please see medication reconciliation form. It took 32 minutes total to discharge this patient. MD MUKUL Ventura/JUANPABLO /[id number]
== END 2019-09-10 17:11 | DRG 178 ==
LOC: ER 12:16 → ERHOLD 14:49 → MED/SURG3 18:51 → OBSVTOIN 09-01 14:13
PROVIDERS: ADMIT Internal Medicine; ATTEND Internal Medicine
PROC: 0DH68UZ Insertion of Feeding Device into Stomach, Via Natural or Artificial Opening Endoscopic (ICD-10-PCS; 2019-09-09)
PROC: 02HV33Z Insertion of Infusion Device into Superior Vena Cava, Percutaneous Approach (ICD-10-PCS; principal; 2019-09-09 13:36)
DX: J69.0 Pneumonitis due to inhalation of food and vomit (principal); T83.511A Infection and inflammatory reaction due to indwelling urethral catheter, initial encounter; E87.1 Hypo-osmolality and hyponatremia; I69.354 Hemiplegia and hemiparesis following cerebral infarction affecting left non-dominant side; N17.9 Acute kidney failure, unspecified; Z16.12 Extended spectrum beta lactamase (ESBL) resistance; J09.X2 Influenza due to identified novel influenza A virus with other respiratory manifestations; I10 Essential (primary) hypertension; I25.10 Atherosclerotic heart disease of native coronary artery without angina pectoris; E78.5 Hyperlipidemia, unspecified; E03.9 Hypothyroidism, unspecified; Z66 Do not resuscitate; E78.00 Pure hypercholesterolemia, unspecified; D64.9 Anemia, unspecified; R13.12 Dysphagia, oropharyngeal phase; Z95.5 Presence of coronary angioplasty implant and graft; I48.91 Unspecified atrial fibrillation; Z74.01 Bed confinement status; R60.0 Localized edema; K44.9 Diaphragmatic hernia without obstruction or gangrene; K29.00 Acute gastritis without bleeding; T46.5X5A Adverse effect of other antihypertensive drugs, initial encounter; L89.312 Pressure ulcer of right buttock, stage 2
CPT/HCPCS: 36415; 36556; 43246; 71045; 71250; 74230; 76937; 77001; 80048; 80053; 80061; 81001; 82270; 82550; 82553; 83518; 83605; 83735; 83880; 84443; 84484; 85025; 85610; 85730; 87040; 87070; 87186; 87205; 87400; 93005; 93306; 94640; 94664; 94667; 94668; 94669; 97139; 99251; 99284; C1751; G0378; J0295; J0360; J0456; J0696; J1160; J1200; J1644; J1885; J1940; J2001; J2405; J3480; J7042; J7050; J7121